=== PATIENT | female | born 1975 | race Caucasian/White ===

== ENCOUNTER 2020-05-17 15:42 | Outpatient (CLI) | payer BC, SELFPAY ==
--- NOTE | ~2020-05-17 | MM_ITS ---
EXAMINATION: MM screening [facility] BI w nazario HISTORY: Screening mammogram TECHNIQUE: Craniocaudal and mediolateral oblique 3-D tomosynthesis images were obtained and synthetic 2-D images were generated. CAD analysis was submitted and interpreted. COMPARISON: 07/15/2012 BREAST PARENCHYMAL COMPOSITION: The breasts are heterogeneously dense, which may obscure small masses . FINDINGS: RIGHT BREAST: There is a possible mass of the posterior third of the inner right breast best apprecia orly 7.5 cm from the nipple on craniocaudal tomosynthesis image 32/62. LEFT BREAST: There is no evidence of suspicious mass, calcification, or architectural distortion to s uggest malignancy. There has been no significant interval change. IMPRESSION: 1. Possible right breast mass. 2. Additional mammographic views and possible breast ultrasound are recommended. BI-RADS Category 0: Incomplete: Needs additional imaging evaluation. Reviewed, dictated and finalized at location A. IMPRESSION: 1. Possible right breast mass. 2. Additional mammographic views and possible breast ultrasound are recommended . BI-RADS Category 0: Incomplete: Needs additional imaging evaluation.
== END 2020-05-17 15:43 | disposition home or self-care (01) ==
LOC: ANHIMG 15:47
PROVIDERS: PCP Physician Assistant; Visit Provider Physician Assistant
DX: Z12.31 Encounter for screening mammogram for malignant neoplasm of breast (principal); R92.8 Other abnormal and inconclusive findings on diagnostic imaging of breast
CPT/HCPCS: 77063; 77067

== ENCOUNTER 2020-06-15 13:11 | Outpatient (CLI) | payer BC, SELFPAY ==
--- NOTE | ~2020-06-15 | MMUS_ITS ---
EXAMINATION: MM diagnostic mammo unilat RT, US breast RT complete HISTORY: Possible right breast mass reported in posterior third of inner right breast 7.5 cm from nip ple on screening craniocaudal view of 05/13/2020 screening mammogram TECHNIQUE: Additional 3-D tomosynthesis images of the right breast were performed and synthetic 2-D i mages were generated. CAD analysis was submitted and interpreted. High resolution complete right nick st ultrasound was performed. COMPARISON: 05/17/2020 bilateral digital screening mammogram FINDINGS: MAMMOGRAPHIC FINDINGS: No suspicious mass or architectural distortion is evident mammographically.. ULTRASOUND: 12:00 near nipple: 10 x 5 x 10 mm simple cyst 11:00 1 cm from nipple: 5.3 x 4.6 x 9.5 mm cyst No suspicious mass or shadowing is detected. IMPRESSION: 1. Benign cysts; no mammographic evidence of malignancy 2. Routine mammographic screening is recommended. BI-RADS Category 2: Benign finding(s). Reviewed, dictated and finalized at location A. IMPRESSION: 1. Benign cysts; no mammographic evidence of malignancy 2. Routine mammographic screening is recommended. BI-RADS Category 2: Benign finding(s).
== END 2020-06-15 13:12 | disposition home or self-care (01) ==
LOC: ANHIMG 13:13
PROVIDERS: PCP Physician Assistant; Visit Provider Physician Assistant
DX: R92.8 Other abnormal and inconclusive findings on diagnostic imaging of breast (principal)
CPT/HCPCS: 76641; 77065

== ENCOUNTER 2021-01-10 07:58 | Outpatient (CLI) | payer BC, SELFPAY ==
--- NOTE | ~2021-01-10 | US_ITS ---
EXAMINATION: US right upper quadrant DATE: 01/10/2021 08:36 INDICATION: Diarrhea. TECHNIQUE: Multiple grayscale and Doppler ultrasound images of the abdomen were obtained. COMPARISON: None FINDINGS: The visualized portions of the head and body of the pancreas are normal. There is diffuse h epatic steatosis. No liver surface nodularity. There is normal flow in main portal vein. The gallblad malathi is normal in size. No gallstones or gallbladder wall thickening. There is no sonographic Bang s ign. The common duct is normal and measures 4 mm. IMPRESSION: 1. Diffuse hepatic steatosis. Reviewed, dictated and finalized at location B.
== END 2021-01-10 07:59 | disposition home or self-care (01) ==
PROVIDERS: PCP Physician Assistant; Visit Provider Physician Assistant
DX: R19.7 Diarrhea, unspecified (principal); K76.0 Fatty (change of) liver, not elsewhere classified
CPT/HCPCS: 76705

== ENCOUNTER 2021-01-24 06:35 | Outpatient (CLI) | payer BC, SELFPAY ==
--- NOTE | ~2021-01-24 | CT_ITS ---
EXAMINATION: CT abdomen pelvis w con EXAM DATE: 01/24/2021 07:00 INDICATION: Diarrhea unspecified. No history of abdominal pain. TECHNIQUE: Spiral CT of the abdomen and pelvis was performed without contrast. Axial, coronal and sag ittal images were reviewed. The dose-length product (DLP) for this examination was 975.65 mGy-cm. T he exposure was tailored according to patient size (auto mA exposure control), and iterative reconstr uction (ASIR) was used as additional dose reduction technique. There is no prior study for compariso n. FINDINGS: Portal and splenic veins are patent. Kidneys enhance symmetrically. There is no hydroneph rosis. The uterus is anteverted and morphologically normal. The bladder is unremarkable. The leona er, spleen, adrenal glands and pancreas are unremarkable. Gallbladder is unremarkable. No biliary o bstruction. There is no retroperitoneal or pelvic lymphadenopathy. The appendix has fluid inside of it. Proximal half measures about 7 mm in diameter and this tapers to the tip at about 4 mm in diameter, without appendicolith or inflammation. The stomach and small bow el are unremarkable. There is expected amount of colonic stool. No free intraperitoneal gas. The heart is normal in size. There are no pericardial or pleural effusions. The lung bases are unremar kable. There are no osteoblastic or osteolytic lesions identified. IMPRESSION: 1. Appendix appearance likely normal for this patient, no appendicolith, inflammation or acute sympt omatology provided. 2. Unremarkable CT abdomen pelvis. Reviewed, dictated and finalized at location B. IMPRESSION: 1. Appendix appearance likely normal for this patient, no appendicolith, infla mmation or acute symptomatology provided. 2. Unremarkable CT abdomen pelvis.
== END 2021-01-24 06:36 | disposition home or self-care (01) ==
PROVIDERS: PCP Physician Assistant; Visit Provider Physician Assistant
DX: R19.7 Diarrhea, unspecified (principal)
CPT/HCPCS: 74177; Q9967

== ENCOUNTER 2021-06-07 16:49 | Outpatient (CLI) | payer BC, SELFPAY ==
--- NOTE | ~2021-06-07 | MM_ITS ---
EXAMINATION: MM screening [facility] BI w nazario HISTORY: Screening TECHNIQUE: Craniocaudal and mediolateral oblique 3-D tomosynthesis images were obtained and synthetic 2-D images were generated. CAD analysis was submitted and interpreted. COMPARISON: Comparison to multiple prior studies sequentially, with oldest reviewed study dated 05/17. BREAST PARENCHYMAL COMPOSITION: Breast composed of scattered areas of fibroglandular density. FINDINGS: There is no evidence of suspicious mass, calcification, or architectural distortion to sugg est malignancy in either breast. There has been no suspicious interval change. IMPRESSION: 1. No mammographic evidence of malignancy. 2. Recommend routine screening mammography in one year. BI-RADS Category 1: Negative Reviewed, dictated and finalized at location A.
== END 2021-06-07 16:50 | disposition home or self-care (01) ==
PROVIDERS: PCP Physician Assistant; Visit Provider Physician Assistant
DX: Z12.31 Encounter for screening mammogram for malignant neoplasm of breast (principal)
CPT/HCPCS: 77063; 77067

== ENCOUNTER 2023-02-08 14:57 | Outpatient (CLI) | payer BC, SELFPAY ==
--- NOTE | ~2023-02-08 | MM_ITS ---
EXAMINATION: MM screening [facility] BI w nazario HISTORY: Screening mammogram TECHNIQUE: Craniocaudal and mediolateral oblique 3-D tomosynthesis images were obtained and synthetic 2-D images were generated. CAD analysis was submitted and interpreted. COMPARISON: 06/07/2021, 06/05/2020, 05/17/2020 BREAST PARENCHYMAL COMPOSITION: There are scattered areas of fibroglandular density. FINDINGS: No suspicious mass, calcification, or architectural distortion are identified in either jose ast to suggest malignancy. There has been no suspicious interval change. IMPRESSION: 1. No mammographic evidence of malignancy. 2. Recommend routine screening mammography in one year. BI-RADS Category 1: Negative Reviewed, dictated and finalized at location A.
== END 2023-02-08 14:58 | disposition home or self-care (01) ==
PROVIDERS: PCP Physician Assistant; Visit Provider Physician Assistant
DX: Z12.31 Encounter for screening mammogram for malignant neoplasm of breast (principal)
CPT/HCPCS: 77063; 77067

== ENCOUNTER 2024-11-18 17:08 | Emergency (ER) | payer BC, SELFPAY ==
--- NOTE | ~2024-11-18 | XR_ITS ---
EXAM: XR finger 2nd LT min 2V, XR finger 3rd LT min 2V DATE: 11/18/2024 19:05 HISTORY: LAC . COMPARISON: None available. FINDINGS: Normal mineralization. No fracture or dislocation. No lytic or blastic lesion. Mild scatte red degenerative changes. No erosion or periosteal change. Punctate and linear radiopaque foreign bod ies over the anterior soft tissues at the tip of the third digit. Linear radiopaque foreign body over the anterior soft tissues of the distal second digit. Soft tissue swelling and irregularity anterior ly in the distal second and third digits likely representing the reported laceration. IMPRESSION: No acute osseous finding in the left second or third fingers. Radiopaque soft tissue debr is. Reviewed, dictated and finalized at location K. ORDER CLERK IMPRESSION: No acute osseous finding in the left second or third fingers. Radio paque soft tissue debris.
[2024-11-18 17:15] VITALS: BP 133/76; PULSE 68; RESP 16; TEMP 36.4; O2SAT 100
--- OUTSIDE RECORDS SUMMARY | 2024-11-18 18:56 | XMS_ITS | Data Portability ---
Author Organization [facility] ABENADenisha Address [address] [place] [address] Assessment No assessment recorded. Plan of Treatment Reminders Order Date Submit Date Provider Last Modified By Organization Details Last Modified Time Details Appointments None recorded . Lab TSH + free T4, serum 024 12/03/19 24 [facility], [address], [place], [address], 4 09:29:31 lipid panel, serum 024 12/03/19 24 [facility], [address], [place], [address], 4 09:29:30 CBC w/ auto diff 024 12/03/19 24 [email or web address] 0 [facility], [address], [place], [address], 4 16:51:02 CMP, serum or plasma 024 12/03/19 24 [email or web address] 0 [facility], [address], [place], [address], 4 16:51:03 HbA1c (hemoglo bin A1c), blood 024 12/03/19 24 [email or web address] 0 [facility], [address], [place], [address], 4 16:51:02 Referral None recorded . Procedures None recorded . Surgeries None recorded . Imaging None recorded . Medication Orders None recorded . Patient TargetsNo targets recorded. Patient InstructionsNo instructions recorded. Reason for Referral None Reported. Results Created Date Observation Date Name Description Value Unit Range Abnormal Flag Note LastModifiedBy Organization Detail LastModifiedTime Result Notes None recorded. Problems No Known Problems Procedures Surgical History Date Name Laterality Status Provider Name and Address Organization Details Recorded Time ovarian ablation completed Thao Robles MA [facility] 12/03/2023 17:23:37 Imaging Results None recorded. Procedure Notes None recorded. Medical Equipment None Reported. Allergies No known drug allergies Medications Name Sig Start Date Stop Date Status Note LastModified by Organization Details LastModified Time butalbital 50 mg-acetamino phen 300 mg-caffeine 40 mg-codeine 30 mg cap TAKE 1 CAPSULE BY MOUTH EVERY 4 HOURS NEEDED active Not Available Not Available No t Available Vitals Date Recorded Body weight Body mass index (BMI) Body height Oxygen saturation Oxygen saturation in Arterial blood by Pulse oximetry Heart rate Systolic blood pressure Diastolic blood pressure Provider Name and Address Organization Details Last Updated DateTime 4 29612.2 5 g 33.8 kg/m2 165.1 cm 98 % 98 % 56 /min 128 mm[Hg] 82 mm[Hg] Thao Robles MA [facility] 4 17:22:25 Social History Question Answer Notes LastModified by Organizat ion Details LastModified Time Tobacco Smoking Status Never Smoker [facility] 12/03/2023 17:23:28 What Was The Date Of Your Most Recent Tobacco Screening? 12/03/2023 Information not available 12/03/2023 Has Tobacco Cessation Counseling Been Provided? No Information not available 12/03/2023 Do You Or Have You Ever Used Any Other Forms Of Tobacco Or Nicotine? No Information not available 12/03/2023 Sex: Unknown Functional Status None recorded. Mental Status None recorded. Family History Relationship Description Onset Age of this Age Resolved Age Notes LastModified by Organization Details LastModified Time Father Alcoholism [email or web address] Not availab le 12/03/2023 17:23:03 Father Malignant tumor of lung [email or web address] Not available 2023 17:23:10 Mother Hypertensive disorder [email or web address] Not available 2023 17:23:17 Mother Diabetes mellitus [email or web address] Not available 2023 17:23:22 Medical History No medical history recorded. Gynecological HistoryNo gynecological history recorded. Obstetrics History GPAL:G 0 P 0 0 0 0 Past Encounters Encounter ID Performer Location Encounter Start Date Encounter Closed Date Diagnosis/Indication Diagnosis SNOMED-CT Code Diagnosis ICD10 Code Diagnosis Note [id number] DEYVI Kelley [facility] [address] [place] [address] 12/03/2023 16:56:49 12/03/2023 17:57:31 Adult health examination 541689444 Z00.00 annual wellness completed. fasting labs ordered for annual evaluation . Cholesterol screening 27 7962620 Z13.220 Diabetes m ellitus screening 806950894 Z13.1 Thyroid di sorder screening 839572106 Z13.29 Health Concerns Section Related Observation LastModified by Organization Detai ls LastModified Time None Recorded Concern Status LastModified by Organization Details LastModified Time None Recorded Advance Directives Directive None Recorded Payers Encounter Date Sequence Insurance Name Policy Number Policy Rice Covered Member ID Rice Member ID Guarantor Name 12/03/2023 1 [employer]: ([place]) [id number] Jennifer Hollingsworth [id number] Jennifer Hollingsworth Notes Date Note Type Note Provider Name and Address Organization Details Recorded Time 12/03/2023 text/html Generic HPI TemplateReported bypatient.Notes:pt is here to re-establish with PCP at new office. Here for wellness evaluation. DEYVI Kelley Attn: Accounting,[address], [place], [address], [facility] 12/23/2023 13:01:24 OBGyn Episode No OBEpisode recorded.
--- OUTSIDE RECORDS SUMMARY | 2024-11-18 18:56 | XMS_ITS | Continuity of Care Document ---
Author Organization [facility] Address [address] [address] [place] [address] Phone Care Team Providers Care Scale Expert Name Role Phone Jaylan Bhandari II, MD Unavailable Unavailab le Allergies, Adverse Reactions, Alerts Substance Reaction Status Criticality No Known allergies Medications Medication Instructions Dosage Effective Dates (start - stop) Status Comments AMBIEN (unknown strength) Not Available - Active SYNTHROID (unknown strength) Not Available - Active PLAQUENIL (unknown strength) Not Available - Active Procedures Procedure Date X-ray/Knee 1 Or 2 Views Office/outpatient visit, new, detailed O Advance Directives Directive Yes / No Effective Date File Name No Information Encounters Encounter Description Practice Location Reason(s) For Visit Diagnoses Date Provider Providers Copied on Encounter Office/outpat ient visit, new, detailed [facility], [address] [address] [place] [address], [address], [place] tel:[phone] [facility] right knee pain (chief complaint) Pain in limbBilateral anterior knee painChondromal acia, patella [address] Tian[address], [place], [place], [id number] , [place]. tel: [phone] Referring Provider: Socorro Amaya, [address] [place] [address] [address], [place], [address]. tel:[phone] Family History Family Member Type Diagnosis Age At Onset Father Problem (finding) stroke Father Problem (finding) Systemic lupus erythema tosus Payers Payer name Insurance type Covered constitution party ID Kat tejada(s) [employer] [facility] CI [id number] Social History Type Description Quantity Date Captured Comments Alcohol Use Details No Caffeine Use Details Unknown Tobacco Use Status No Information Smoking Status Unknown if ever smoked 14 Sex Female Vital Signs Date / Time: Height Weight BMI Pulse Rate Blood Pressure Temperature Respiratory Rate Body Surface Area Head Circumference Head Circ. Percentile Wt./Randal. Percentile BMI percentile Pulse Ox Inhaled Ox 11:22 AM 64.00 in 90.718 kg (200.00 lbs) 34.3 3 kg/m eter (2) 117/75 mm[Hg] Chief Complaint And Reason For Visit From encounter dated '07/11/2013 11:00'. right knee pain (chief complaint). Description: Severity level is mild-moderate. Location: right knee. Context: there is an injury. Trauma 3 Days ago on 07/08/2013. Hand Dominance: right.Ms. Hollingsworth is a 38-year-old female who presents today with complaints of bilateral anterior knee pain. She states the right is worse than the left. It's been going on for years. She did have a small injury recently which did flare-up the pain in her right knee. Most pain is anterior. Has occasional swelling at the end of the day. It hurts with stairs. She's had no physical therapy or injections. States she has increasing right knee pain along the anterior aspect of her knee. Reason For Referral Reason For Referral No Information Plan Of Treatment Date Type Action Status Referral Ordered: X-ray/Knee 1 Or 2 Views RT knee ordered History Of Present Illness Encounter Date Complaint History Of Prese nt Illness right knee pain Severity level i s mild-moderate. Location: right knee. Context: there is an injury. Trauma 3 Days ago on 07/08/2013. Hand Dominance: right.Ms. Hollingsworth is a 38-year-old female who presents today with complaints of bilateral anterior knee pain. She states the right is worse than the left. It's been going on for years. She did have a small injury recently which did flare-up the pain in her right knee. Most pain is anterior. Has occasional swelling at the end of the day. It hurts with stairs. She's had no physical therapy or injections. States she has increasing right knee pain along the anterior aspect of her knee. Functional Status Date Functional Assessmen t No Information Instructions Date Instruction Additional Infor mation No Information Assessments Type Assessment Date No Information Patient Care Teams Name Effective Dates (start - stop) Status Members No Information
--- OUTSIDE RECORDS SUMMARY | 2024-11-18 19:16 | XMS_ITS | Data Portability ---
Author Organization [facility], Main Office Address [address] [place] [address] Assessment No assessment recorded. Plan of Treatment Reminders Order Date Submit Date Provider Last Modified By Organization Details Last Modified Time Details Appointments None recorded. Lab CBC w/ auto diff 2022 023 [facility], [address], [address], [place], [address], 3 07:27:20 CMP, serum or plasma 2022 023 [facility], [address], [address], [place], [address], 3 07:27:18 noninvasive colorectal cancer DNA + occult blood screening, QL, stool 2022 023 [facility] (Cologuard Orders Only), [address], [address], [place], [address], 3 03:33:16 lipid panel, serum 2022 023 [facility], [address], [address], [place], [address], 3 07:27:17 HbA1c (hemoglobin A1c), blood 2022 023 [facility], [address], [address], [place], [address], 3 07:27:19 TSH + free T4, serum 2022 023 [facility], [address], [place], [address], 07:27:17 Referral None recorded. Procedures None recorded. Surgeries None recorded. Imaging MAMMO, screening, digital, bilateral 2022 023 [facility] (Mammography) , [address], [place], [address], 17:05:11 Medication Orders None recorded. Patient TargetsNo targets recorded. Patient InstructionsNo instructions recorded. Reason for Referral None Reported. Results Created Date Observation Date Name Description Value Unit Range Abnormal Flag Note LastModifiedBy Organization Detail LastModifiedTime 12/09/1912/09/2022 TSH+F REE T4 TSH 3.05 mIU/L normal Refer ence Range > or = 20 Years 0.40- 4.50 Pregn kelechi Range s First trime ster 0.26- 2.66 Secon d trime ster 0.55- 2.73 Third trime ster 0.43- 2.91 Not Available [facility] [address], [address], 12/09/2022 07:27:16 12/09/1912/09/2022 TSH+F REE T4 T4, free 1.0 NG/dL 0.8-1. 8 normal Not Available [facility] [address] [place], [address], 12/09/2022 07:27:16 12/09/1912/09/2022 LIPID PANEL WITH RATIO S cholesterol, total 167 mg/dL <200 normal Not Available [facility] [address] [place], [address], 12/09/2022 07:27:17 12/09/1912/09/2022 LIPID PANEL WITH RATIO S HDL cholesterol 75 mg/dL > or = 50 normal Not Available [facility] [id number] [place] [address], [place], [address], 12/09/2022 07:27:17 12/09/19 23 12/09/2022 LIPID PANEL WITH RATIO S triglyceride s 46 mg/dL <150 normal Not Available [address], [address], 12/09/2022 07:27:17 12/09/19 23 12/09/2022 LIPID PANEL WITH RATIO S LDL-choleste rol 79 mg/dL _(woody c) normal Refer ence range : <100 Dipesh able range <100 mg/dL for prima ry preve ntion ; <70 mg/dL for patie nts with CHD or diabe tic patie nts with > or = 2 CHD risk facto rs. LDL-C is now calcu lated using the Grace n-Hop kins calcu latio n, which is a valid ated novel metho d provi ding rasheeda r accur acy than the Fried pravin equat ion in the estim ation of LDL-C . Grace estrada SS et al. RON. 2013; 310(1 9): 2061- 2068 (http ://ed ucati on.Qu estDi SoCAT. com/f aq/FA Q164) Not Available [address], [address], 12/09/2022 07:27:17 12/09/19 23 12/09/2022 LIPID PANEL WITH RATIO S chol/HDLC ratio 2.2 (calc ) <5.0 normal Not Available [address], [address], 12/09/2022 07:27:17 12/09/19 23 12/09/2022 LIPID PANEL WITH RATIO S LDL/HDL ratio 1.1 (calc ) Below avera ge Risk: <2.34 [place] Risk: 2.35- 4.12 Moder ate Risk: 4.13- 5.56 High Risk: >5.57 Not Available [address], [address], 12/09/2022 07:27:17 12/09/19 23 12/09/2022 LIPID PANEL WITH RATIO S non HDL cholesterol 92 mg/dL _(woody c) <130 normal For patie nts with diabe clary plus 1 major ASCVD risk facto r, treat ing to a non-H DL-C goal of <100 mg/dL (LDL- C of <70 mg/dL ) is tammyi teagan kimball optio n. Not Available [address] [place], [address], 12/09/2022 07:27:17 12/09/19 23 12/09/2022 COMPR EHENS PHYLLIS METAB OLIC PANEL glucose 95 mg/dL 65-99 normal Fasti ng refer ence inter angela Not Available [address], [address], 12/09/2022 07:27:18 12/09/19 23 12/09/2022 COMPR EHENS PHYLLIS METAB OLIC PANEL urea nitrogen (BUN) 16 mg/dL 7-25 normal Not Available [address], [address], 12/09/2022 07:27:18 12/09/19 23 12/09/2022 COMPR EHENS PHYLLIS METAB OLIC PANEL creatinine 0.77 mg/dL 0.50-0 .99 normal Not Available [address], [address], 12/09/2022 07:27:18 12/09/19 23 12/09/2022 COMPR EHENS PHYLLIS METAB OLIC PANEL eGFR 96 mL/mi n/1.7 3m2 > or = 60 normal The eGFR is based on the CKD-E PI 2020 jackson lópez. To calcu late the new eGFR from a previ ous Creat inine or Cysta tin C resul t, go to https ://paolo corley.alesha castillo/keisha pierce/ kdoqi /gfr% 5Fcal culat or Not Available [address] [place], [address], 12/09/2022 07:27:18 12/09/19 23 12/09/2022 COMPR EHENS PHYLLIS METAB OLIC PANEL BUN/creatini ne ratio NOT APPLIC ABLE (calc ) 6-22 Not Available [address], [address], 12/09/2022 07:27:18 12/09/19 23 12/09/2022 COMPR EHENS PHYLLIS METAB OLIC PANEL sodium 138 mmol/ L 135-14 6 normal Not Available [address], [address], 12/09/2022 07:27:18 12/09/19 23 12/09/2022 COMPR EHENS PHYLLIS METAB OLIC PANEL potassium 4.2 mmol/ L 3.5-5. 3 normal Not Available [address], [address], 12/09/2022 07:27:18 12/09/19 23 12/09/2022 COMPR EHENS PHYLLIS METAB OLIC PANEL chloride 103 mmol/ L 98-110 normal Not Available [address], [address], 12/09/2022 07:27:18 12/09/19 23 12/09/2022 COMPR EHENS PHYLLIS METAB OLIC PANEL carbon dioxide 28 mmol/ L 20-32 normal Not Available [address], [address], 12/09/2022 07:27:18 12/09/19 23 12/09/2022 COMPR EHENS PHYLLIS METAB OLIC PANEL calcium 9.2 mg/dL 8.6-10 .2 normal Not Available [address], [address], 12/09/2022 07:27:18 12/09/19 23 12/09/2022 COMPR EHENS PHYLLIS METAB OLIC PANEL protein, total 6.9 g/dL 6.1-8. 1 normal Not Available [address], [address], 12/09/2022 07:27:18 12/09/19 23 12/09/2022 COMPR EHENS PHYLLIS METAB OLIC PANEL albumin 4.4 g/dL 3.6-5. 1 normal Not Available [address], [address], 12/09/2022 07:27:18 12/09/19 23 12/09/2022 COMPR EHENS PHYLLIS METAB OLIC PANEL globulin 2.5 g/dL_ (calc ) 1.9-3. 7 normal Not Available [address], [address], 12/09/2022 07:27:18 12/09/19 23 12/09/2022 COMPR EHENS PHYLLIS METAB OLIC PANEL albumin/glob ulin ratio 1.8 (calc ) 1.0-2. 5 normal Not Available [address], [address], 12/09/2022 07:27:18 12/09/19 23 12/09/2022 COMPR EHENS HPYLLIS METAB OLIC PANEL bilirubin, total 0.5 mg/dL 0.2-1. 2 normal Not Available [address], [address], 12/09/2022 07:27:18 12/09/19 23 12/09/2022 COMPR EHENS PHYLLIS METAB OLIC PANEL alkaline phosphatase 64 U/L 31-125 normal Not Available [address], [address], 12/09/2022 07:27:18 12/09/19 23 12/09/2022 COMPR EHENS PHYLLIS METAB OLIC PANEL AST 15 U/L 10-35 normal Not Available [address] [place], [address], 12/09/2022 07:27:18 12/09/19 23 12/09/2022 COMPR EHENS PHYLLIS METAB OLIC PANEL ALT 14 U/L 6-29 normal Not Available [facility] [address] [place], [address], 12/09/2022 07:27:18 12/09/19 23 12/09/2022 HEMOG LOBIN A1C hemoglobin A1C 5.4 %_of_ total _HGB <5.7 normal For the purpo se of scree vera for the prese nce of diabe clary: <5.7% Consi stent with the absen ce of diabe clary 5.7-6 .4% Consi stent with incre ased risk for diabe clary (pred iabet es) > or =6.5% Consi stent with diabe clary This assay resul t is consi stent with a decre ased risk of diabe clary. Curre ntly, no conse nsus exist s regar randy use of hemog lobin A1c for diagn osis of diabe clary in child jenna. Accor ding to Ameri can Diabe clary Assoc iatio n (ADA) guide lines , hemog lobin A1c <7.0% repre sents optim al contr ol in non-p regna nt diabe tic patie nts. Diffe rent metri cs may apply to speci fic patie nt popul ation s. Stand ards of Medic al Care in Diabe clary(A DA). Not Available [facility] [address] [place], [address], 12/09/2022 07:27:19 12/09/19 23 12/09/2022 CBC (INCL UDES DIFF/ PLT) white blood cell count 6.9 thous and/u L 3.8-10 .8 normal Not Available [facility] [address] [place], [address], 12/09/2022 07:27:20 12/09/19 23 12/09/2022 CBC (INCL UDES DIFF/ PLT) red blood cell count 4.51 yvonne on/uL 3.80-5 .10 normal Not Available [address], [address], 12/09/2022 07:27:20 12/09/19 23 12/09/2022 CBC (INCL UDES DIFF/ PLT) hemoglobin 13.5 g/dL 11.7-1 5.5 normal Not Available [address], [address], 12/09/2022 07:27:20 12/09/19 23 12/09/2022 CBC (INCL UDES DIFF/ PLT) hematocrit 40.4 % 35.0-4 5.0 normal Not Available [address], [address], 12/09/2022 07:27:20 12/09/19 23 12/09/2022 CBC (INCL UDES DIFF/ PLT) MCV 89.6 fL 80.0-1 00.0 normal Not Available [address], [address], 12/09/2022 07:27:20 12/09/19 23 12/09/2022 CBC (INCL UDES DIFF/ PLT) MCH 29.9 pg 27.0-3 3.0 normal Not Available [address], [address], 12/09/2022 07:27:20 12/09/19 23 12/09/2022 CBC (INCL UDES DIFF/ PLT) MCHC 33.4 g/dL 32.0-3 6.0 normal Not Available [address], [address], 12/09/2022 07:27:20 12/09/19 23 12/09/2022 CBC (INCL UDES DIFF/ PLT) RDW 11.9 % 11.0-1 5.0 normal Not Available [facility] [address], [address], 12/09/2022 07:27:20 12/09/19 23 12/09/2022 CBC (INCL UDES DIFF/ PLT) platelet count 353 thous and/u L 140-40 0 normal Not Available [address], [address], 12/09/2022 07:27:20 12/09/19 23 12/09/2022 CBC (INCL UDES DIFF/ PLT) MPV 9.9 fL 7.5-12 .5 normal Not Available [address], [address], 12/09/2022 07:27:20 12/09/19 23 12/09/2022 CBC (INCL UDES DIFF/ PLT) absolute neutrophils 4050 cells /uL 1500-7 800 normal Not Available [address], [address], 12/09/2022 07:27:20 12/09/19 23 12/09/2022 CBC (INCL UDES DIFF/ PLT) absolute lymphocytes 2263 cells /uL 850-39 00 normal Not Available [address], [address], 12/09/2022 07:27:20 12/09/19 23 12/09/2022 CBC (INCL UDES DIFF/ PLT) absolute monocytes 442 cells /uL 200-95 0 normal Not Available [address], [address], 12/09/2022 07:27:20 12/09/19 23 12/09/2022 CBC (INCL UDES DIFF/ PLT) absolute eosinophils 83 cells /uL 15-500 normal Not Available [address], [address], 12/09/2022 07:27:20 12/09/19 23 12/09/2022 CBC (INCL UDES DIFF/ PLT) absolute basophils 62 cells /uL 0-200 normal Not Available [address], [address], 12/09/2022 07:27:20 12/09/19 23 12/09/2022 CBC (INCL UDES DIFF/ PLT) neutrophils 58.7 % normal Not Available [address], [address], 12/09/2022 07:27:20 12/09/19 23 12/09/2022 CBC (INCL UDES DIFF/ PLT) lymphocytes 32.8 % normal Not Available [address], [address], 12/09/2022 07:27:20 12/09/19 23 12/09/2022 CBC (INCL UDES DIFF/ PLT) monocytes 6.4 % normal Not Available [address], [address], 12/09/2022 07:27:20 12/09/19 23 12/09/2022 CBC (INCL UDES DIFF/ PLT) eosinophils 1.2 % normal Not Available [address], [address], 12/09/2022 07:27:20 12/09/19 23 12/09/2022 CBC (INCL UDES DIFF/ PLT) basophils 0.9 % normal Not Available [address], [address], 12/09/2022 07:27:20 12/29/19 23 12/28/2022 COLOG UARD cologuard result reportable NEGATI VE negati ve NEGAT PHYLLIS TEST RESUL T. A negat phyllis Colog uard resul t indic ates a low likel ihood that a color ectal cance r (CRC) or advan eder adeno ma (gunjan omato us polyp s with more advan eder pre-m align ant featu res) is prese nt. The [facility] e that a perso n with a negat phyllis Colog uard test has a color ectal cance r is less than 1 in 1500 (nega tive predi ctive value >99.9 %) or has an advan eder adeno ma is less than 5.3% (nega tive predi ctive value 94.7% ). These data are based on a prosp ectiv e cross -sect ional study of 10,00 0 indiv idual s at [place] [facility] risk for color ectal cance r who were scree lauren with both Colog uard and colon oscop y. (Impe boy T. et al, N Engl J Med 2014; 370(1 4):12 86-12 97) The eliazar l value (refe rence range ) for this assay is negat phyllis. COLOG UARD RE-SC REENI NG RECOM MENDA TION: Perio dic color ectal cance r scree vera is an impor tant part of preve ntive healt hcare for asymp tomat ic indiv idual s at [place] risk for color ectal cance r. Follo wing a negat phyllis Colog uard resul t, the Ameri can Cance r Socie ty and U.S. Multi -Soci ety Task Force scree vera guide lines recom mend a Colog uard re-sc reeni ng inter angela of 3 years . Refer ences : Ameri can Cance r Socie ty Guide line for Color ectal Cance r Scree vera: https ://paolo w.can cer.o rg/ca ncer/ colon -rect al-ca ncer/ detec tion- diagn osis- stagi ng/ac s-rec ommen datio ns.ht ml.; Miles GRACIA, Omayra ahuja CR, Kit WAYNE, Color ectal Cance r Scree vera: Recom menda tions for Physi cians and Patie nts from the U.S. Multi -Soci ety Task Force on Color ectal Cance r Scree vera , Hosea Mayberry Gastr oente rolog y 2017; 112:1 016-1 030. TEST DESCR IPTIO N: Linganore site algor ithmi c ashley sis of stool DNA-b iomar kers with hemog lobin immun oassa y. Quant itati ve value s of indiv idual bioma rkers are not repor table and are not assoc iated with indiv idual bioma rker resul t refer ence range s. Colog uard is inten ded for color ectal cance r scree vera of adult s of eithe r sex, 45 years or older , who are at [facility] for color ectal cance r (CRC) . Colog uard has been appro pearl for use by the U.S. FDA. The perfo rmanc e of Colog uard was estab lishe d in a cross secti onal study of [facility] adult s aged 50-84 . Colog uard perfo rmanc e in patie nts ages 45 to 49 years was estim ated by sub-g roup ashley sis of near- age group s. Colon oscop ies perfo rmed for a posit phyllis resul t may find as the most clini sully signi ficdianna t eddi n: color ectal cance r [4.0% ], advan eder adeno ma (incl uding sessi le esmer orly polyp s great er than or equal to 1cm diame ter) [20%] or non- advan eder adeno ma [31%] ; or no color ectal neopl tatyana [45%] . These estim ates are deriv ed from a prosp ectiv e cross -sect ional scree [facility] study of 10,00 0 indiv idual s at [facility] risk for color ectal cance r who were scree lauren with both Colog uard and colon oscop y. (Mari Lopez al, N Engl J Med 2014; 370(1 4):12 86-12 97.) Colog uard may produ ce a false negat phyllis or false posit phyllis resul t (no color ectal cance r or preca ncero us polyp prese nt at colon oscop y follo w up). A negat phyllis Colog uard test resul t does not guara ntee the absen ce of CRC or advan eder adeno ma (pre- cance r). The curre nt Colog uard scree vera inter angela is every 3 years . (Kimberley Stanley r Socie ty and U.S. Multi -Soci ety Task Force ). Colog uard perfo rmanc e data in a 10,00 0 patie nt pivot al study using colon oscop y as the refer ence metho d can be acces sed at the follo wing locat ion: www.e xactl abs.c om/re sults . Addit ional descr iptio n of the Colog uard test proce ss, warni ngs and preca ution s can be found at www.c ologu marco.c om. Not Available [facility] (Cologuard Orders Only) [address], [place], [address], 01/05/2023 03:33:16 01/11/20 21 01/10/2021 US, deangelo cruz r No observ ation record ed. MIGRATION. [address] [place] [address], [address], 11/22/2022 00:57:30 01/25/20 21 01/24/2021 CT, abdom en + pelvi s, w/ contr ast No observ ation record ed. MIGRATION. [address] [place] [address] (Imaging) [address] [place] [address], [address], 11/22/2022 00:57:30 06/08/20 21 06/08/2021 MAMMO , scree vera, digit al, bilat eral No observ ation record ed. MIGRATION. [address] [place] [address] (Mammography) [address], [place], [address], 11/22/2022 00:57:30 04/17/20 23 02/08/2023 MAMMO , scree vera, digit al, bilat eral No observ ation record ed. [email or web address] [address], [address], 04/18/2023 14:44:05 Result Notes None recorded. Problems Name Problem SNOMED Code Status Onset Date Resolution Date Notes Provider Name and Address Organization Details Recorded Time Overweight 476771208 Active Not Available [facility] 3 00:50:48 Diarrhea 61299539 Active Not Available [facility] 3 00:50:48 Problem Notes None recorded. Procedures Surgical History Date Name Laterality Status Provider Name and Address Organization Details Recorded Time ligation of bilateral fallopian tubes completed Not Available [facility] 11/22/2022 00:45:34 Ablation completed Not Available [facility] 00:45:34 Imaging Results Imaging Date Name Status LastModified by Organiz ation Details LastModified Time 01/10/2021 US, gallbladder completed [id number], [address], 11/22/2022 00:57:30 01/24/2021 CT, abdomen + pelvis, w/ contrast completed [id number] [facility] (Imaging) [address] [place] [address], [place], [address], 11/22/2022 00:57:30 06/08/2021 MAMMO, screening, digital, bilateral completed [id number] [facility] (Mammography) [address], [place], [address], 11/22/2022 00:57:30 02/08/2023 MAMMO, screening, digital, bilateral completed [email or web address] [address], [address], 04/18/2023 14:44:05 Procedure Notes None recorded. Medical Equipment None Reported. Allergies No known drug allergies Medications Name Sig Start Date Stop Date Status Note LastModified by Organization Details LastModified Time Keflex 500 mg capsule Take 1 capsule every 6 hours by oral route. 11/02 completed Not Available Not Available Not Available amoxicillin 875 mg tablet Take 1 tablet every 12 hours by oral route. active Not Available Not Available No t Available meclizine 25 mg tablet prn 11/17 completed Not Available Not Available Not Available Lactaid Fast Act 9,000 unit chewable tablet TAKE 1 TABLET DAILY NEEDED 12/07 completed Not Available Not Available Not Available Golytely 236 gram-22.74 gram-6.74 gram-5.86 gram oral solution USE DIRECTED 04/04 completed Not Available Not Available Not Available Vitals Date Recorded Body mass index (BMI) Body height Oxygen saturation Oxygen saturation in Arterial blood by Pulse oximetry Heart rate Respiratory rate Body temperature Body weight Systolic blood pressure Diastolic blood pressure Provider Name and Address Organization Details Last Updated DateTime 1 35.2 kg/m2 162.56 cm 99 % 99 % 68 /min 16 /min 98.4 [degF] 16906.4 4 g 112 mm[Hg] 68 mm[Hg] Not Available [facility] 3 00:48:40 Date Recorded Body mass index (BMI) Body height Oxygen saturation Oxygen saturation in Arterial blood by Pulse oximetry Pain severity - 0-10 verbal numeric rating [Score] - Reported Heart rate Body temperature Body weight Provider Name and Address Organization Details Last Updated DateTime 1 35.7 kg/m2 162.56 cm 98 % 98 % 0 75 /min 96.9 [degF] 40267.2 1 g Not Available [facility] 3 00:48:42 Date Recorded Body height Body temperature Body mass index (BMI) Body weight Respiratory rate Oxygen saturation Oxygen saturation in Arterial blood by Pulse oximetry Heart rate Systolic blood pressure Diastolic blood pressure Provider Name and Address Organization Details Last Updated DateTime 3 162.56 cm 98.3 [degF] 34.7 kg/m2 51963.6 6 g 16 /min 97 % 97 % 68 /min 122 mm[Hg] 80 mm[Hg] REI Lee [facility] 3 14:39:21 Social History Question Answer Notes LastModified by Organizat ion Details LastModified Time Tobacco Smoking Status Never Smoker CINDY Márquez, [facility] 12/07/2022 14:22:37 Do You Have An Advance Directive? No [id number] Information not available 11/22/2022 What Is Your Level Of Alcohol Consumption? None [id number] Information not available 11/22/2022 What Is Your Level Of Caffeine Consumption? Moderate [id number] Information not available 11/22/2022 How Much Tobacco Do You Chew? None [id number] Information not available 11/22/2022 In The 14 Days Before Symptom Onset, Have You Had Close Contact With A Laboratory-confir med COVID-19 While That Case Was Ill? No Information not available 12/07/2022 In The 14 Days Before Symptom Onset, Have You Had Close Contact With A Person Who Is Under Investigation For COVID-19 While That Person Was Ill? No Information not available 12/07/2022 Are You Currently Employed? Yes Information not available 12/07/2022 What Type Of Diet Are You Following? REGULAR [id number] Information not available 11/22/2022 Which Illicit Or Recreational Drugs Have You Used? None Information not available 12/07/2022 Do You Or Have You Ever Used E-cigarettes Or Vape? Never Used Electronic Cigarettes Information not available 12/07/2022 What Is Your Occupation? [employer] Information not available 12/07/2022 Have There Been Any Changes To Your Family Or Social Situation? No Information no t available 12/07/2022 Are There Any Guns Present In Your Home? No Information not available 12/07/2022 Do You Use Insect Repellent Routinely? No Information not available 12/07/2022 Do You Have A Medical Power Of Weed Inspector? No Information not available 12/07/2022 What Was The Date Of Your Most Recent Tobacco Screening? 11/22/2020 Information not available 12/07/2022 What Is Your Relationship Status? Information not available 12/07/2022 Do You Use Your Seat Belt Or Car Seat Routinely? Yes Information not available 12/07/2022 Do You Have Smoke And Carbon Monoxide Detectors In Your Home? Yes Information not available 12/07/2022 Do You Or Have You Ever Used Smokeless Tobacco? Never Used Smokeless Tobacco [id number] Information not available 11/22/2022 How Much Tobacco Do You Smoke? No [id number] Information not available 11/22/2022 Do You Use Any Illicit Or Recreational Drugs? No Information not available 12/07/2022 Do You Use Sunscreen Routinely? Yes Information not available 12/07/2022 Have You Recently Traveled Abroad? No Information not available 12/07/2022 Do You Have Any Dietary Restrictions? No Information not available 12/07/2022 Do You Or Have You Ever Used Any Other Forms Of Tobacco Or Nicotine? No Information not available 12/07/2022 Sex: Unknown Functional Status Question Answer Note LastModified by Organizat ion Details LastModified Time What is your exercise level? Occasional [id number] Information not available 11/22/2022 Mental Status None recorded. Family History Relationship Description Onset Age of this Age Resolved Age Notes LastModified by Organization Details LastModified Time Mother Diabetes mellitus [id number] Not available 11/22/2022 00:45:38 Mother Hypertensive disorder [id number] Not available 11/22/2022 00:45:38 Brother Diabetes mellitus [id number] Not available 11/22/2022 00:45:38 Father Malignant tumor of lung Not available 2022 14:22:34 Medical History Condition Response NERVE DISEASE N BLINDNESS N RHEUMATIC FEVER N KIDNEY STONES N BLADDER PROBLEMS N OTHER # 1 N POLIO N LUNG DISEASE/DISORDER N RADIATION / CHEMOTHERAPY N COPD N Other # 2 N BLOOD DISEASES N SURGERY N EAR OR HEARING PROBLEMS N MUMPS N DEPRESSION (INCLUDING POST ) Y BOWEL PROBLEMS Y STROKE/TIA N ULCERS N BENIGN PROSTATIC HYPERPLASIA N MEASLES N MYOCARDIAL INFARCTION N OBESITY N GERD/NAUSEA N ANEURYSM N URINARY/BLADDER/KIDNEY PROBLEMS N INPATIENT PSYCH CARE N CORONARY ARTERY DISEASE (CAD) N ADDICTION CONCERNS N Impotence N ENDOMETRIOSIS N USE OF BLOOD THINNERS N SKIN PROBLEMS N GASTROINTESTINAL DISORDER N PERIPHERAL VASCULAR DISEASE N MUSCLE,JOINT OR BONE PROBLEMS N GASTROINTESTINAL BLEEDING N BLOOD CLOTS N ASTHMA N CATARACTS N ERECTILE DYSFUNCTION N VARICOSITIES N GI PROBLEMS N Low Testosterone N INFERTILITY N AIDS/HIV N LIVER DISEASE N MALE HYPOGONADISM N HYPERTENSION N Deficiency N ANXIETY DISORDER Y BLOOD TRANSFUSION N ANEMIA/BLOOD DISORDER N CHRONIC EAR INFECTIONS N BRONCHITIS N TUBERCULOSIS N GLAUCOMA N DIVERTICULITIS N SLEEP APNEA N CHICKENPOX N INFECTIOUS DISEASE N PROSTATE N HEART ARRHYTHMIA N INSOMNIA N HIGH CHOLESTEROL / HYPERLIPIDEMIA N EYE PROBLEMS N HYPERTHYROIDISM N NEUROLOGICAL PROBLEMS N EDEMA N CHRONIC PAIN SYNDROME N HYPOTHYROIDISM N CAROTID BLOCKAGE N CONSTIPATION N BACK / NECK PROBLEMS N HAVE YOU BEEN HOSPITALIZED OR SEEN IN [facility] IN THE PAST YEAR ? N ATHEROSCLEROSIS N BREAST PROBLEMS N DIALYSIS N ECZEMA N OSTEOPOROSIS N ARTHRITIS N NO SIGNIFICANT PAST MEDICAL HISTORY N APPENDICITIS N DIABETES, TYPE N BAD TEETH N ENT N HEARTBURN / REFLUX N AUTISM SPECTRUM DISORDER (ASD) N HEPATITIS / LIVER DISEASE N PULMONARY DISEASE N GOUT N SLEEP DISORDER N ALZHEIMER'S DISEASE N Brain Problems N DEMENTIA N HERPES N SEIZURES/EPILEPSY N HEADACHES/MIGRAINES N VASCULAR DISEASE N PACEMAKER N Blood Disorder N DIZZINESS Y HEART DISEASE/HEART PROBLEMS N KIDNEY DISEASE N MULTIPLE SCLEROSIS N CANCER: SPECIFY N CARDIAC ARRHYTHMIA N ANESTHESIA COMPLICATIONS N ATRIAL FIBRILLATION N Gall Stones N PULMONARY EMBOLISM N AUTOIMMUNE DISEASE N Gynecological History Statement/Question Response Menses Monthly N Date of Last Pap 09/24/2013 Date of Last Mammogram 03/24/2020 Current Control Method Ablation Sexually Active? Y Obstetrics History GPAL:G 4 P 0 0 0 4 Type Value Living 4 Total 4 Immunizations Vaccine Type Date Status Note Provider Nam e and Address Organization Details Recorded Time tetanus toxoid, unspecified formulation 8 completed Not Available [facility] 11/22/2022 00:56:58 Tdap 8 completed Not Available [facility] 11/22/2022 00:56:59 Past Encounters Encounter ID Performer Location Encounter Start Date Encounter Closed Date Diagnosis/Indication Diagnosis SNOMED-CT Code Diagnosis ICD10 Code Diagnosis Note [id number] [facility] Internal [facility] [place] [address] [address], [address] [place] [address] 11/22/2020 00:00:00 11/29/2020 10:03:22 [id number] _ATHENA_M IGRATION_ DEFAULT_1 _1 , 02/16/2021 00:00:00 02/16/2021 11:10:58 [id number] DEYVI Kelley [facility] [place] [address] [address], [address] [place] [address] 12/07/2022 14:18:45 12/07/2022 15:09:39 Adult health examination 701334066 Z00.00 well exam completed. fasting labs ordered Cholesterol screening 27 1810002 Z13.220 Diabetes m ellitus screening 184459249 Z13.1 Screening for malignant neoplasm of colon 828268985 Z12.11 pt opts for cologuard screening method Screening for disorder 680972218 Z13.9 Body mass index 30+ - obesity 745911924 Z68.34 Screening mammography 24 858639 Z12.31 mammogram due Health Concerns Section Related Observation LastModified by Organization Detai ls LastModified Time None Recorded Concern Status LastModified by Organization Details LastModified Time None Recorded Advance Directives Directive N: Payers Encounter Date Sequence Insurance Name Policy Number Policy Rice Covered Member ID Rice Member ID Guarantor Name 12/07/2022 1 [facility]: (PPO) [id number] Dharmesh Hollingsworth [id number] Jennifer Hollingsworth Notes Date Note Type Note Provider Name and Address Organization Details Recorded Time 11/22/2020 text/html Generic HPI TemplateReported bypatient.Notes:Pt presents today for yearly wellness exam. No concerns or complaints reported. Not Available [facility] 11/29/2020 10:03:22 12/07/2022 text/html Generic HPI TemplateReported bypatient.Notes:Pt is here for her wellness. No chronic prob/meds. No complaints today. Wellness DEYVI Kelley [address] [place] [address], [place], [address], [facility] 12/16/2022 00:21:39 OBGyn Episode No OBEpisode recorded.
--- OUTSIDE RECORDS SUMMARY | 2024-11-18 19:16 | XMS_ITS | Continuity of Care Document ---
Author Organization [facility] Address [address] [facility] [address] [place] [address] Phone Care Team Providers Care Qa Specialist Name Role Phone Jaylan Bhandari II, MD [...] detailed [facility], [address] [facility] [address] [place] [address], [address], [place] tel:[phone] [facility] right knee pain (chief complaint) Pain in limbBilateral anterior knee painChondromal acia, patella 3 Thony Tian. [address], [place], [place], [id number] , [place]. tel: [phone] Referring Provider: Socorro Amaya, [address] [place] [address] [address], [place], [address]. tel:[phone] Family History Family Member Type Diagnosis Age At Onset Father Problem (finding) stroke Father Problem (finding) Systemic lupus erythema tosus Payers Payer name Insurance type Covered alliance party ID Kat tejada(s) [facility] Plans [facility] CI [id number] 1 Social History Type Description Quantity Date [...]
[2024-11-18] MEDS: HYDROcodone/acetaminophen (*CRX) 5-325 MG TABLET 1 TAB PO (19:35)
[2024-11-18] MEDS: KETOROLAC (*BKC) 60 MG/2 ML VIAL IM (19:36)
[2024-11-18] MEDS: LIDOCAINE 1% LOCAL INJ 10 ML VIAL INFILTRATE (19:39)
[2024-11-18] MEDS: TETANUS,DIPHTHERIA,AC PERTUSSIS ADULT (0.5 ML) BOOSTRIX IM (19:49)
--- NOTE | 2024-11-18 20:32 | ED_ITS ---
HPI - Wound/Laceration General Chief Complaint: Wound/Laceration Stated Complaint: i cut 2 fingers at work on the becker machine Time Seen by Provider: 11/18/24 18:46 History of Present Illness HPI narrative: Patient is a 41-year-old who presents to the ER with complaints of lef t 2nd and 3rd digit lacerations. 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 Pt endorses a fair amount of pain in her 2nd and 3rd digits. She denies numbness and tingling to those digits. Patient denies any medical history related to this ER visit. She denies any recent fevers, signs/symptoms of infection, or decreased range of mo tion on the affected extremity. Related Data Home Medications ?Medication ?Instructions ?Recorded ?Confirmed ?Last Taken ?Type No Home Medications 12/05/21 12/18/23 Unknown History Allergies Allergy/AdvReac Type Severity Reaction Status Date / Time No Known Allergies Allergy Verified 11/18/24 17:09 Review of Systems Review of Systems: All systems reviewed & are unremarkable except as noted in HPI and below PMFSH Past Medical History Medical History Screening mammogram, encounter for Anxiety and depression Surgical History Surgical History History of gynecological procedure ablation History of gynecological procedure tubal ligation Family History Family History Other Diabetes mellitus Family history of alcoholism Hypertension Social History Social History Smoking status: Never smoker Second hand tobacco smoke exposure: No Alcohol intake: never Substance use: never Substance use type: does not use Do You Feel Safe in your Home?: Yes Lack of Transportation: No Lack of Food: Never True Current Housing: I Have Housing Concerned About Future Housing: No Difficulty Paying Gas/Electric Bills: No Difficulty Paying for Meds: No Currently Unemployed: No Education: High School Diploma/GED Difficulty w/ Childcare or Family Care: No Living arrangements: other Additional living arrangements comments: spouse Occupation/Education: occupation Additional occupation/education comments: gaming cashier Gender identity (if verbalized by the patient): Female Sexual Orientation (if Verbalized by the Patient): Straight or Heterosexual Exam Narrative: GENERAL: Well appearing, well-nourished, non-toxic, in no acute distress. HEAD: Normocephalic, atraumatic. NECK: Supple. No adenopathy, no masses. RESPIRATORY: Airway patent, respirations nonlabored. Clear to auscultation bilaterally, no rales, rhonchi, wheezing. CARDIOVASCULAR: Regular rate and rhythm without murmurs, rubs, or gallops. Peripheral pulses 2+ and equal bilaterally. ABDOMINAL: Soft, nontender, nondistended, no hepatosplenomegaly. Normoactive BS. MUSCULOSKELETAL: Moves all extremities. Strength/ROM intact without gross deformities. SKIN: Warm, dry, normal color. No rashes. 3 linear lacerations to 2nd and 3rd digits- one 1 cm laceration to 3rd digit medial to the PIP joint, one 2 cm laceration running vertically along the lateral anterior tip of the 3rd digit, and one 1 1/2 cm laceration to the 2nd digit running horizontal between the DIP and PIP joint. Bleeding controlled. Full range of motion in all joints. NEURO: A&O X3. Speech clear. Cranial nerves II-XII grossly intact. Steady gait. No ataxic movements. PSYCHIATRIC: Appropriate mood and affect. Normal interaction. Course Vital Signs Vital signs: Vital Signs Temperature 36.4 C L 11/18/24 17:15 Pulse Rate 68 11/18/24 17:15 Respiratory Rate 16 11/18/24 17:15 Blood Pressure 133/76 11/18/24 17:15 Pulse Oximetry 100 11/18/24 17:15 Temperature 36.4 C L 11/18/24 17:15 Pulse Rate 68 11/18/24 17:15 Respiratory Rate 16 11/18/24 17:15 Blood Pressure 133/76 11/18/24 17:15 Pulse Oximetry 100 11/18/24 17:15 MDM - Wound/Laceration MDM Narrative Medical decision making narrative: Patient is a 41-year-old who presents to the ER with complaints of left 2nd and 3rd digit lacerations. 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 Pt endorses a fair amount of pain in her 2nd and 3rd digits. She denies numbness and tingling to those digits. Patient denies any medical history related to this ER visit. She denies any recent fevers, signs/symptoms of infection, or decreased range of motion on the affected extremity. Labs Ordered: None necessary Imaging Ordered: L 2nd and 3rd digit x-rays Medications Ordered: [place] PO, Toradol IM, Tdap IM, Lidocaine 1% infiltrate Results: Pt's x-rays indicate Normal mineralization. No fracture or dislocation. No lytic or blastic lesion. Mild scattered degenerative changes. No erosion or periosteal change. Punctate and linear radiopaque foreign bodies over the anterior soft tissues at the tip of the third digit. Linear radiopaque foreign body over the anterior soft tissues of the distal second digit. Soft tissue swelling and irregularity anteriorly in the distal second and third digits likely representing the reported laceration. Diagnosis: 2nd and 3rd digit laceration Patient Education/Shared MDM: Results of x-rays shared with patient. She endorses improvement following medication administration. Pt's wounds were irrigated extensively with normal saline. The bases of both digits were cleaned with iodine and 10mL of Lidocaine 1% injected for numbing purposes. Lacerations were repaired with Ethilon 4.0 sutures. Eleven sutures were placed. Small 1/2 cm cellulose square placed on pt's 3rd digit to help one of the laceration heal that was not approximated. Pt tolerated procedure well. 2nd and 3rd digits were wrapped and splinted with metal splints. Patient tolerated procedure well. She will be discharged home with no new prescriptions. Strict return precautions provided. Patient verbalized understanding is in agreement with plan. Vital signs stable at time of discharge. All questions answered. Differential Diagnosis Differential diagnosis: Likely laceration, abrasion and avulsion of skin Imaging Data Attestation: I personally reviewed and interpreted this imaging study as follows: Radiologist's impression: Impressions Finger X-Ray 11/18/24 19:16 IMPRESSION: No acute osseous finding in the left second or third fingers. Radiopaque soft tissue debris. Finger X-Ray 11/18/24 19:16 IMPRESSION: No acute osseous finding in the left second or third fingers. Radiopaque soft tissue debris. Discharge Plan Discharge Clinical Impression: Laceration, Avulsion of skin Patient Disposition: Home, Self-Care Condition: Stable Instructions: Antibiotic Form, Care For Your Stitches (ED), Laceration (ED) Additional Instructions: Please return to the ER with an worsening symptoms. Follow-up with primary care provider in the next 2-3 days to ensure appropriately healing. You may take Tylenol and Ibuprofen for pain control. Sutures should be removed in 10-14 days. Please keep lacerations covered. Patient Language: Scottish Prescriptions: No Action No Home Medications Follow-up/Referrals: Sylvia,MARQUISE Chowdhury [Primary Care Provider] - Stand Alone Forms: Work/School Release IP Time of Disposition: 20:52
[2024-11-18] MEDS: CELLULOSE OXIDIZED 2 x 3 INCH 1 PKT XX (21:18)
== END 2024-11-18 21:19 | disposition home or self-care (01) ==
PROVIDERS: Emergency Provider Registered Nurse; PCP Physician Assistant
DX: S61.211A Laceration without foreign body of left index finger without damage to nail, initial encounter (principal); S61.213A Laceration without foreign body of left middle finger without damage to nail, initial encounter; Z23 Encounter for immunization; W31.89XA Contact with other specified machinery, initial encounter
CPT/HCPCS: 12002; 73140; 90471; 90715; 96372; 99283; A9270; J1885; J2003

== ENCOUNTER 2025-01-09 07:52 | Outpatient (CLI) | payer BC, SELFPAY ==
--- NOTE | ~2025-01-09 | MM_ITS ---
EXAMINATION: MM screening maria e BI w nazario HISTORY: Screening TECHNIQUE: Craniocaudal and mediolateral oblique 3-D tomosynthesis images were obtained and synthetic 2-D images were generated. CAD analysis was submitted and interpreted. COMPARISON: Comparison to multiple prior studies sequentially, with oldest reviewed study dated 05/17. BREAST PARENCHYMAL COMPOSITION: Not dense: There are scattered areas of fibroglandular density. FINDINGS: The right breast is stable without evidence for malignancy. There is developing asymmetry i n the upper outer quadrant of the left breast, posterior third. IMPRESSION: 1. Developing left breast asymmetry. 2. Additional mammographic views and possible breast ultrasound are recommended. BI-RADS Category 0: Incomplete: Needs additional imaging evaluation. Reviewed, dictated and finalized at location B. IMPRESSION: 1. Developing left breast asymmetry. 2. Additional mammographic views and possible breast ultrasound are recommended . BI-RADS Category 0: Incomplete: Needs additional imaging evaluation.
--- OUTSIDE RECORDS SUMMARY | 2025-01-09 07:59 | XMS_ITS | Data Portability ---
Author Organization [facility] Sarita Address [address] [place] [address] Care Team Providers Care Restoration Technician Name Role Phone LORAINEDinhANTOINETTEIE Primary Care Provider CHRISTIANO Manning Bracelet Form Coverer Assessment No assessment recorded. Plan of Treatment Reminders Order Date Submit Date Provider Last Modified By Organization Details Last Modified Time Details Appointments None recorded. Lab TSH + free T4, serum 2023 024 [facility], [address], [place], [address], 09:29:31 lipid panel, serum 2023 024 [facility], [address], [place], [address], 4 09:29:30 CBC w/ auto diff 2023 024 [email or web address] 0 [facility], [address], [place], [address], 4 16:51:02 CMP, serum or plasma 2023 024 [email or web address] 0 [facility], [address], [place], [address], 4 16:51:03 HbA1c (hemoglobin A1c), blood 2023 024 [email or web address] 0 [facility], [address], [place], [address], 4 16:51:02 Referral None recorded. Procedures None recorded. Surgeries None recorded. Imaging None recorded. Medication Orders cephalexin 500 mg capsule 2024 025 [id number], [address], [place], [place], [id number], 17:28:04 Patient TargetsNo targets recorded. Patient Instructions Encounter Date Encounter Id Patient Instructions Last Modified By Organization Details Last Modified Time 12/01/2024 [id number] A healthy lifestyle: care instructions [place] [id number] Not available 12/02/2024 12:06:49 Reason for Referral None Reported. Results Created Date Observation Date Name Description Value Unit Range Abnormal Flag Note LastModifiedBy Organization Detail LastModifiedTime 11/19/1911/18/2024 XR, finge r(s) No observ ation record ed. [email or web address] [facility] [address] [place] [address] [address], [place], [address], 11/19/2024 14:20:43 Result Notes None recorded. Problems Name Problem SNOMED Code Status Onset Date Resolution Date Notes Provider Name and Address Organization Details Recorded Time Body mass index 25-29 - overweight 588424382 Active 025 Randall Duque MA null, [place] [facility] 11:35:38 Overweight 697855219 Active 025 DEYVI Kelley Attn: Accountin g,[address] [facility], [place], [address], [place] [facility] 20:40:21 Problem Notes None recorded. Procedures Surgical History Date Name Laterality Status Provider Name and Address Organization Details Recorded Time Suture/Staple removal completed DEYVI Kelley Attn: Accounting,[address] [facility], [place], [address], [place] [facility] 12/21/2024 20:39:20 ovarian ablation completed Thao Robles [place] [facility] 12/03/2023 17:23:37 Imaging Results Imaging Date Name Status LastModified by Organiz ation Details LastModified Time 11/18/2024 XR, finger(s) completed [email or web address] [facility] [address], [place], [address], 11/19/2024 14:20:43 Procedure Notes None recorded. Medical Equipment None Reported. Allergies No known drug allergies Medications Name Sig Start Date Stop Date Status Note LastModified by Organization Details LastModified Time ibuprofen 800 mg tablet Take 1 tablet by oral route for 6 days. active Not Available Not Available No t Available hydrocodone 5 mg-acetamino phen 325 mg tablet TO 1 TO 2 TABLETS BY MOUTH EVERY 4 TO 6 HOURS NEEDED FOR PAIN MAX DOSE 8 TABLETS DAILY 12/01 completed Not Available Not Available Not Available acetaminophe n 300 mg-codeine 30 mg tablet Take 1 tablet by oral route for 5 days. active Not Available Not Available No t Available amoxicillin 875 mg tablet TAKE 1 TABLET BY MOUTH EVERY 12 HOURS 12/01 completed Not Available Not Available Not Available cephalexin 500 mg capsule TAKE 1 CAPSULE BY MOUTH EVERY 6 HOURS 01/05 completed Not Available Not Available Not Available butalbital 50 mg-acetamino phen 300 mg-caffeine 40 mg-codeine 30 mg cap TAKE 1 CAPSULE BY MOUTH EVERY 4 HOURS NEEDED 12/01 completed Not Available Not Available Not Available Vitals Date Recorded Body weight Body mass index (BMI) Body height Oxygen saturation Oxygen saturation in Arterial blood by Pulse oximetry Heart rate Systolic blood pressure Diastolic blood pressure Provider Name and Address Organization Details Last Updated DateTime 4 95726.2 5 g 33.8 kg/m2 165.1 cm 98 % 98 % 56 /min 128 mm[Hg] 82 mm[Hg] Thao Robles MA [facility] 4 17:22:25 Date Recorded Body height Body mass index (BMI) Body weight Respiratory rate Oxygen saturation Oxygen saturation in Arterial blood by Pulse oximetry Heart rate Systolic blood pressure Diastolic blood pressure Provider Name and Address Organization Details Last Updated DateTime 5 165.1 cm 27.8 kg/m2 80782 g 18 /min 97 % 97 % 75 /min 126 mm[Hg] 80 mm[Hg] Randall Duque MA [facility] 11:40:30 Date Recorded Body height Body mass index (BMI) Body weight Respiratory rate Oxygen saturation Oxygen saturation in Arterial blood by Pulse oximetry Heart rate Systolic blood pressure Diastolic blood pressure Provider Name and Address Organization Details Last Updated DateTime 165.1 cm 27.1 kg/m2 62485.5 6 g 18 /min 99 % 99 % 72 /min 126 mm[Hg] 82 mm[Hg] Randall Duque MA [facility] 17:29:41 Date Recorded Systolic blood pressure Diastolic blood pressure Provider Name and Address Organization Details Last Updated DateTime 01/05/2025 130 mm[Hg] 70 mm[Hg] DEYVI Kelley Attn: Accounting[address] [place], [address], [facility] 01/05/2025 17:47:44 Social History Question Answer Notes LastModified by Organizat ion Details LastModified Time Tobacco Smoking Status Never Smoker Thao Robles MA null, [facility] 12/03/2023 17:23:28 Do You Have An Advance Directive? No Information not available 12/01/2024 What Is Your Level Of Alcohol Consumption? Occasional Information not available 12/01/2024 Are You Blind Or Do You Have Difficulty Seeing? Yes Glasses Information not available 12/01/2024 What Is Your Level Of Caffeine Consumption? Occasional Coffee 1 Day/ Tea Information not available 12/01/2024 In The 14 Days Before Symptom Onset, Have You Had Close Contact With A Laboratory-confir med COVID-19 While That Case Was Ill? No Information not available 12/01/2024 In The 14 Days Before Symptom Onset, Have You Had Close Contact With A Person Who Is Under Investigation For COVID-19 While That Person Was Ill? No Information not available 12/01/2024 Have You Been To An Area Known To Be High Risk For COVID-19? No Information not available 12/01/2024 Are You Currently Employed? Yes Information not available 12/01/2024 Are You Deaf Or Do You Have Serious Difficulty Hearing? No Information not available 12/01/2024 What Type Of Diet Are You Following? REGULAR Information not available 12/01/2024 Are There Any Guns Present In Your Home? No Information not available 12/01/2024 What Was The Date Of Your Most Recent Tobacco Screening? 01/05/2025 Information not available 01/05/2025 Do You Use Your Seat Belt Or Car Seat Routinely? Yes Information not available 12/01/2024 Do You Have Smoke And Carbon Monoxide Detectors In Your Home? Yes Information not available 12/01/2024 Do You Use Any Illicit Or Recreational Drugs? No Information not available 12/01/2024 Do You Use Sunscreen Routinely? No Information not available 01/05/2025 Has Tobacco Cessation Counseling Been Provided? No Information not available 12/03/2023 Do You Or Have You Ever Used Any Other Forms Of Tobacco Or Nicotine? No Information not available 12/03/2023 Sex: Female Functional Status Question Answer Note LastModified by Organizat ion Details LastModified Time Are you able to care for yourself? Yes Information not available 12/01/2024 What is your exercise level? Occasional walk Information not available 12/01/2024 Mental Status None recorded. Family History Relationship Description Onset Age of this Age Resolved Age Notes LastModified by Organization Details LastModified Time Father Alcoholism [email or web address] Not availab le 12/03/2023 17:23:03 Father Malignant tumor of lung [email or web address] Not available 2023 17:23:10 Mother Hypertensive disorder [email or web address] Not available 2023 17:23:17 Mother Diabetes mellitus [email or web address] Not available 2023 17:23:22 Medical History No medical history recorded. Gynecological History Statement/Question Response Menses Monthly N Current Control Method Ablation Obstetrics History GPAL:G 4 P 4 0 0 4 Type Value Multiple Births 0 Full Term 4 Induced 0 Spontaneous 0 Premature 0 Living 4 Total 4 Immunizations Vaccine Type Date Status Note Provider Alexx dixon and Address Organization Details Recorded Time Tdap 11/18/2024 completed Randall Duque MA null, [place] [facility] 12/01/2024 11:37:01 Past Encounters Encounter ID Performer Location Encounter Start Date Encounter Closed Date Diagnosis/Indication Diagnosis SNOMED-CT Code Diagnosis ICD10 Code Diagnosis Note [id number] DEYVI Kelley [facility] [address] [place] [address] 12/03/2023 16:56:49 12/03/2023 17:57:31 Adult health examination 957141282 Z00.00 annual wellness completed. fasting labs ordered for annual evaluation . Cholesterol screening 27 7119306 Z13.220 Diabetes m ellitus screening 453182923 Z13.1 Thyroid di sorder screening 948917715 Z13.29 [id number] DEYVI Kelley [facility] [address] [place] [address] 12/01/2024 11:13:46 12/01/2024 12:21:08 Body mass index 25-29 - overweight 523249012 Z68.27 Overweight 025630822 E66 .3 Laceration of finger of left hand 5952694610 0404711 S61.211D Sutures removed on the left index and middle finger laceration sites. Suture removal was very difficult as there was significan t amount of gauze closure material that had to be peeled off as well as scabbed area to be removed after the area was soaked with saline. Slowly sutures were all removed and there was some purulent drainage that was expressed from the index finger site. Antibiotic will be started Cellulitis of finger of left hand 1299321054 6834432 L03.012 Start Keflex 500 mg every 6 hours for 10 days [id number] DEYVI Kelley [facility] [address] [place] [address] 01/05/2025 17:17:12 01/05/2025 17:50:07 Adult health examination 293632986 Z00.00 annual wellness completed. fasting labs ordered for annual evaluation . Cholesterol screening 27 2885514 Z13.220 Diabetes m ellitus screening 549735016 Z13.1 Thyroid di sorder screening 121459591 Z13.29 Health Concerns Section Related Observation LastModified by Organization Detai ls LastModified Time None Recorded Concern Status LastModified by Organization Details LastModified Time None Recorded Advance Directives Directive N: Payers Encounter Date Sequence Insurance Name Policy Number Policy Rice Covered Member ID Rice Member ID Guarantor Name 12/03/2023 1 [place] [id number] Jennifer Hollingsworth [id number] Jennifer Childress Darrick 12/01/2024 1 [place] [id number] Jennifer Hollingsworth [id number] Jennifer Hollingsworth Notes Date Note Type Note Provider Name and Address Organization Details Recorded Time 12/03/2023 text/html Generic HPI TemplateReported bypatient.Notes:pt is here to re-establish with PCP at new office. Here for wellness evaluation. DEYVI Kelley Attn: Accounting[address] [place], [address], [facility] 12/23/2023 13:01:24 12/01/2024 text/html Patient is here for follow-up of laceration of left hand finger and have all of the sutures removed. She is not currently on any antibiotic but is in quite a bit of pain since the accident. 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 She is not currently having any fever but again she has kept the area bandaged and does have pain. DEYVI Kelley Attn: Accounting,[address] [place], [address], [facility] 12/21/2024 20:40:45 OBGyn Episode No OBEpisode recorded.
--- OUTSIDE RECORDS SUMMARY | 2025-01-09 07:59 | XMS_ITS | Data Portability ---
Author Organization [facility], Main Office Address [address] [place] [address] Assessment No assessment recorded. Plan of Treatment Reminders Order Date Submit Date Provider Last Modified By Organization Details Last Modified Time Details Appointments None recorded. Lab CBC w/ auto diff 2022 023 [employer] [facility], [address], [address], [place], [address], 3 07:27:20 CMP, serum or plasma 2022 023 [employer] [facility], [address], [address], [place], [address], 3 07:27:18 noninvasive colorectal cancer DNA + occult blood screening, QL, stool 2022 023 [facility] (Cologuard Orders Only), [address], [address], [place], [address], 3 03:33:16 lipid panel, serum 2022 023 [employer] [facility], [address], [address], [place], [address], 3 07:27:17 HbA1c (hemoglobin A1c), blood 2022 023 [employer] [facility], [address], [address], [place], [address], 3 07:27:19 TSH + free T4, serum 2022 023 [facility], [address], [place], [address], 07:27:17 Referral None recorded. Procedures None recorded. Surgeries None recorded. Imaging MAMMO, screening, digital, bilateral [address] [facility] (Mammography) , [address], [place], [address], 17:05:11 Medication Orders None recorded. Patient TargetsNo [...] Third trime ster 0.43- 2.91 Not Available [employer] [address], [address], 12/09/2022 07:27:16 12/09/1912/09/2022 TSH+F REE T4 T4, free 1.0 NG/dL 0.8-1. 8 normal Not Available [facility] [address] [place], [address], 12/09/2022 07:27:16 12/09/1912/09/2022 LIPID PANEL WITH RATIO S cholesterol, total 167 mg/dL <200 normal Not Available [facility] [address] [place], [address], 12/09/2022 07:27:17 12/09/1912/09/2022 LIPID PANEL WITH RATIO S HDL cholesterol 75 mg/dL > or = 50 normal Not Available [facility] [address] [place], [place] [address], [address], 12/09/2022 07:27:17 12/09/19 23 12/09/2022 LIPID PANEL WITH RATIO S triglyceride s 46 mg/dL <150 normal Not Available [address], [address], 12/09/2022 07:27:17 12/09/19 23 12/09/2022 LIPID PANEL [...] 2061- 2068 (http ://ed ucati on.Qu estDi Clavister. com/f aq/FA Q164) Not Available [address], [address], 12/09/2022 07:27:17 12/09/19 23 12/09/2022 LIPID PANEL WITH RATIO S chol/HDLC ratio 2.2 (calc ) <5.0 normal Not Available [address], [address], 12/09/2022 07:27:17 12/09/19 23 12/09/2022 LIPID PANEL WITH RATIO S LDL/HDL ratio 1.1 (calc ) Below avera ge Risk: <2.34 [place] ge Risk: 2.35- 4.12 Moder ate Risk: 4.13- 5.56 High Risk: >5.57 Not Available [address], [address], 12/09/2022 07:27:17 12/09/19 23 12/09/2022 LIPID PANEL WITH RATIO S non HDL cholesterol 92 mg/dL _(woody c) <130 normal For patie nts with diabe clary plus 1 major ASCVD risk facto r, treat ing to a non-H DL-C goal of <100 mg/dL (LDL- C of <70 mg/dL ) is tammyi teagan kimball optio n. Not Available [address] [place], [address], 12/09/2022 07:27:17 12/09/19 23 12/09/2022 COMPR EHENS PHYLLIS METAB OLIC PANEL glucose 95 mg/dL 65-99 normal Fasti ng refer ence inter angela Not Available [address], [address], 12/09/2022 07:27:18 12/09/19 23 12/09/2022 COMPR EHENS PHYLLIS METAB OLIC PANEL urea nitrogen (BUN) 16 mg/dL 7-25 normal Not Available [address], [address], 12/09/2022 07:27:18 12/09/19 23 12/09/2022 COMPR EHENS PHYLLIS METAB OLIC PANEL creatinine 0.77 mg/dL 0.50-0 .99 normal Not Available [address], [address], 12/09/2022 07:27:18 12/09/19 23 12/09/2022 COMPR EHENS [...] kdoqi /gfr% 5Fcal culat or Not Available [address] [place], [address], 12/09/2022 07:27:18 12/09/19 23 12/09/2022 COMPR EHENS PHYLLIS METAB OLIC PANEL BUN/creatini ne ratio NOT APPLIC ABLE (calc ) 6-22 Not Available [address], [address], 12/09/2022 07:27:18 12/09/19 23 12/09/2022 COMPR EHENS PHYLLIS METAB OLIC PANEL sodium 138 mmol/ L 135-14 6 normal Not Available [address], [address], 12/09/2022 07:27:18 12/09/19 23 12/09/2022 COMPR EHENS PHYLLIS METAB OLIC PANEL potassium 4.2 mmol/ L 3.5-5. 3 normal Not Available [address], [address], 12/09/2022 07:27:18 12/09/19 23 12/09/2022 COMPR EHENS PHYLLIS METAB OLIC PANEL chloride 103 mmol/ L 98-110 normal Not Available [address], [address], 12/09/2022 07:27:18 12/09/19 23 12/09/2022 COMPR EHENS PHYLLIS METAB OLIC PANEL carbon dioxide 28 mmol/ L 20-32 normal Not Available [address], [address], 12/09/2022 07:27:18 12/09/19 23 12/09/2022 COMPR EHENS PHYLLIS METAB OLIC PANEL calcium 9.2 mg/dL 8.6-10 .2 normal Not Available [address], [address], 12/09/2022 07:27:18 12/09/19 23 12/09/2022 COMPR EHENS PHYLLIS METAB OLIC PANEL protein, total 6.9 g/dL 6.1-8. 1 normal Not Available [address], [address], 12/09/2022 07:27:18 12/09/19 23 12/09/2022 COMPR EHENS PHYLLIS METAB OLIC PANEL albumin 4.4 g/dL 3.6-5. 1 normal Not Available [address], [address], 12/09/2022 07:27:18 12/09/19 23 12/09/2022 COMPR EHENS PHYLLIS METAB OLIC PANEL globulin 2.5 g/dL_ (calc ) 1.9-3. 7 normal Not Available [address], [address], 12/09/2022 07:27:18 12/09/19 23 12/09/2022 COMPR EHENS PHYLLIS METAB OLIC PANEL albumin/glob ulin ratio 1.8 (calc ) 1.0-2. 5 normal Not Available [address], [address], 12/09/2022 07:27:18 12/09/19 23 12/09/2022 COMPR EHENS PHYLLIS METAB OLIC PANEL bilirubin, total 0.5 mg/dL 0.2-1. 2 normal Not Available [address], [address], 12/09/2022 07:27:18 12/09/19 23 12/09/2022 COMPR EHENS PHYLLIS METAB OLIC PANEL alkaline phosphatase 64 U/L 31-125 normal Not Available [address], [address], 12/09/2022 07:27:18 12/09/19 23 12/09/2022 COMPR EHENS PHYLLIS METAB OLIC PANEL AST 15 U/L 10-35 normal Not Available [address] [place], [address], 12/09/2022 07:27:18 12/09/19 23 12/09/2022 COMPR EHENS PHYLLIS METAB OLIC PANEL ALT 14 U/L 6-29 normal Not Available [facility] [address] [place], [address], 12/09/2022 07:27:18 12/09/19 23 12/09/2022 HEMOG LOBIN [...] Diabe clary(A DA). Not Available [facility] [address] [place], [address], 12/09/2022 07:27:19 12/09/19 23 12/09/2022 CBC (INCL UDES DIFF/ PLT) white blood cell count 6.9 thous and/u L 3.8-10 .8 normal Not Available [facility] [address] [place], [address], 12/09/2022 07:27:20 12/09/19 23 12/09/2022 CBC (INCL UDES DIFF/ PLT) red blood cell count 4.51 yvonne on/uL 3.80-5 .10 normal Not Available [address], [address], 12/09/2022 07:27:20 12/09/19 23 12/09/2022 CBC (INCL UDES DIFF/ PLT) hemoglobin 13.5 g/dL 11.7-1 5.5 normal Not Available [address], [address], 12/09/2022 07:27:20 12/09/19 23 12/09/2022 CBC (INCL UDES DIFF/ PLT) hematocrit 40.4 % 35.0-4 5.0 normal Not Available [address], [address], 12/09/2022 07:27:20 12/09/19 23 12/09/2022 CBC (INCL UDES DIFF/ PLT) MCV 89.6 fL 80.0-1 00.0 normal Not Available [address], [address], 12/09/2022 07:27:20 12/09/19 23 12/09/2022 CBC (INCL UDES DIFF/ PLT) MCH 29.9 pg 27.0-3 3.0 normal Not Available [address], [address], 12/09/2022 07:27:20 12/09/19 23 12/09/2022 CBC (INCL UDES DIFF/ PLT) MCHC 33.4 g/dL 32.0-3 6.0 normal Not Available [address], [address], 12/09/2022 07:27:20 12/09/19 23 12/09/2022 CBC (INCL UDES DIFF/ PLT) RDW 11.9 % 11.0-1 5.0 normal Not Available [facility] [address], [address], 12/09/2022 07:27:20 12/09/19 23 12/09/2022 CBC (INCL UDES DIFF/ PLT) platelet count 353 thous and/u L 140-40 0 normal Not Available [address], [address], 12/09/2022 07:27:20 12/09/19 23 12/09/2022 CBC (INCL UDES DIFF/ PLT) MPV 9.9 fL 7.5-12 .5 normal Not Available [address], [address], 12/09/2022 07:27:20 12/09/19 23 12/09/2022 CBC (INCL UDES DIFF/ PLT) absolute neutrophils 4050 cells /uL 1500-7 800 normal Not Available [address], [address], 12/09/2022 07:27:20 12/09/19 23 12/09/2022 CBC (INCL UDES DIFF/ PLT) absolute lymphocytes 2263 cells /uL 850-39 00 normal Not Available [address], [address], 12/09/2022 07:27:20 12/09/19 23 12/09/2022 CBC (INCL UDES DIFF/ PLT) absolute monocytes 442 cells /uL 200-95 0 normal Not Available [address], [address], 12/09/2022 07:27:20 12/09/19 23 12/09/2022 CBC (INCL UDES DIFF/ PLT) absolute eosinophils 83 cells /uL 15-500 normal Not Available [address], [address], 12/09/2022 07:27:20 12/09/19 23 12/09/2022 CBC (INCL UDES DIFF/ PLT) absolute basophils 62 cells /uL 0-200 normal Not Available [address], [address], 12/09/2022 07:27:20 12/09/19 23 12/09/2022 CBC (INCL UDES DIFF/ PLT) neutrophils 58.7 % normal Not Available [address], [address], 12/09/2022 07:27:20 12/09/19 23 12/09/2022 CBC (INCL UDES DIFF/ PLT) lymphocytes 32.8 % normal Not Available [address], [address], 12/09/2022 07:27:20 12/09/19 23 12/09/2022 CBC (INCL UDES DIFF/ PLT) monocytes 6.4 % normal Not Available [address], [address], 12/09/2022 07:27:20 12/09/19 23 12/09/2022 CBC (INCL UDES DIFF/ PLT) eosinophils 1.2 % normal Not Available [address], [address], 12/09/2022 07:27:20 12/09/19 23 12/09/2022 CBC (INCL UDES DIFF/ PLT) basophils 0.9 % normal Not Available [address], [address], 12/09/2022 07:27:20 12/29/19 23 12/28/2022 COLOG UARD cologuard result reportable NEGATI VE negati ve NEGAT PHYLLIS TEST RESUL T. A negat phyllis Colog uard resul t indic ates a low likel ihood that a color ectal cance r (CRC) or advan eder adeno ma (gunjan omato us polyp s with more advan eder pre-m align ant featu res) is prese nt. [facility] that a perso n with a [...] of 10,00 0 indiv idual s at [facility] risk for color ectal cance r [...] asymp tomat ic indiv idual s at [place] risk for color ectal cance r. [...] 112:1 016-1 030. TEST DESCR IPTIO N: [facility] site algor ithmi c ashley sis of [...] years or older , who are at [facility] for color ectal cance r (CRC) . Colog uard has been appro pearl for use by the [place] FDA. The perfo rmanc e of Colog uard was estab lishe d in a cross secti onal study of [facility] adult s aged 50-84 . Colog uard [...] prosp ectiv e cross -sect ional scree [facility] study of 10,00 0 indiv idual s at [facility] risk for color ectal cance r who [...] at www.c ologu marco.c om. Not Available [facility] (Cologuard Orders Only) [address], [place], [address], 01/05/2023 03:33:16 01/11/20 21 01/10/2021 US, deangelo cruz r No observ ation record ed. MIGRATION. [address] [place] [address], [address], 11/22/2022 00:57:30 01/25/20 21 01/24/2021 CT, abdom en + pelvi s, w/ contr ast No observ ation record ed. MIGRATION. [address] [place] [address] (Imaging) [address] [place] [address], [address], 11/22/2022 00:57:30 06/08/20 21 06/08/2021 MAMMO , scree vera, digit al, bilat eral No observ ation record ed. MIGRATION. [address] [place] [address] (Mammography) [address], [place], [address], 11/22/2022 00:57:30 04/17/20 23 02/08/2023 MAMMO , scree vera, digit al, bilat eral No observ ation record ed. [email or web address] [address], [address], 04/18/2023 14:44:05 Result Notes None recorded. Problems Name Problem SNOMED Code Status Onset Date Resolution Date Notes Provider Name and Address Organization Details Recorded Time Overweight 589116526 Active Not Available [facility] 3 00:50:48 Diarrhea 01263077 Active Not Available [facility] 3 00:50:48 Problem Notes None recorded. Procedures Surgical History Date Name Laterality Status Provider Name and Address Organization Details Recorded Time ligation of bilateral fallopian tubes completed Not Available [facility] 11/22/2022 00:45:34 Ablation completed Not Available [facility] 00:45:34 Imaging Results Imaging Date Name Status LastModified by Organiz ation Details LastModified Time 01/10/2021 US, gallbladder completed [id number], [address], 11/22/2022 00:57:30 01/24/2021 CT, abdomen + pelvis, w/ contrast completed [id number] 9259 [facility] (Imaging) [address] [place] [address], [place], [address], 11/22/2022 00:57:30 06/08/2021 MAMMO, screening, digital, bilateral completed [id number] [facility] (Mammography) [address], [place], [address], 11/22/2022 00:57:30 02/08/2023 MAMMO, screening, digital, bilateral completed [address], [address], 04/18/2023 14:44:05 Procedure Notes None recorded. Medical [...] % 68 /min 16 /min 98.4 [degF] 13688.4 4 g 112 mm[Hg] 68 mm[Hg] Not Available [facility] 3 00:48:40 Date Recorded Body mass index (BMI) Body height Oxygen saturation Oxygen saturation in Arterial blood by Pulse oximetry Pain severity - 0-10 verbal numeric rating [Score] - Reported Heart rate Body temperature Body weight Provider Name and Address Organization Details Last Updated DateTime 1 35.7 kg/m2 162.56 cm 98 % 98 % 0 75 /min 96.9 [degF] 84353.2 1 g Not Available [facility] 3 00:48:42 Date Recorded Body height Body temperature Body mass index (BMI) Body weight Respiratory rate Oxygen saturation Oxygen saturation in Arterial blood by Pulse oximetry Heart rate Systolic blood pressure Diastolic blood pressure Provider Name and Address Organization Details Last Updated DateTime 3 162.56 cm 98.3 [degF] 34.7 kg/m2 73868.6 6 g 16 /min 97 % 97 % 68 /min 122 mm[Hg] 80 mm[Hg] REI Lee [facility] 3 14:39:21 Social History Question Answer Notes LastModified by Organizat ion Details LastModified Time Tobacco Smoking Status Never Smoker CINDY Márquez, [facility] 12/07/2022 14:22:37 Do You Have An Advance Directive? No [id number] Information not available 11/22/2022 What Is Your Level Of Alcohol Consumption? None [id number] Information not available 11/22/2022 What Is Your Level Of Caffeine Consumption? Moderate [id number] Information not available 11/22/2022 How Much Tobacco Do You Chew? None [id number] Information not available 11/22/2022 In The 14 [...] Type Of Diet Are You Following? REGULAR [id number] Information not available 11/22/2022 Which Illicit Or Recreational Drugs Have You Used? None Information not available 12/07/2022 Do You Or Have You Ever Used E-cigarettes Or Vape? Never Used Electronic Cigarettes Information not available 12/07/2022 What Is Your Occupation? [employer] Information not available 12/07/2022 Have There Been Any Changes To Your Family Or Social Situation? No Information no t available 12/07/2022 Are There Any Guns Present In Your Home? No Information not available 12/07/2022 Do You Use Insect Repellent Routinely? No Information not available 12/07/2022 Do You Have A Medical Power Of Wallpaper Hanger? No Information not available 12/07/2022 What Was [...] Used Smokeless Tobacco? Never Used Smokeless Tobacco [id number] Information not available 11/22/2022 How Much Tobacco Do You Smoke? No [id number].[id number] Information not available 11/22/2022 Do You Use [...] Time What is your exercise level? Occasional [id number] Information not available 11/22/2022 Mental Status None recorded. Family History Relationship Description Onset Age of this Age Resolved Age Notes LastModified by Organization Details LastModified Time Mother Diabetes mellitus [id number] Not available 11/22/2022 00:45:38 Mother Hypertensive disorder [id number] Not available 11/22/2022 00:45:38 Brother Diabetes mellitus [id number] [id number] Not available 11/22/2022 00:45:38 Father Malignant tumor of lung Not available 2022 14:22:34 Medical History Condition Response NERVE DISEASE N BLINDNESS N RHEUMATIC FEVER N KIDNEY STONES N BLADDER PROBLEMS N OTHER # 1 N POLIO N LUNG DISEASE/DISORDER N RADIATION / CHEMOTHERAPY N COPD N Other # 2 N BLOOD DISEASES N SURGERY N EAR OR HEARING PROBLEMS N MUMPS N BOWEL PROBLEMS Y DEPRESSION (INCLUDING POST ) Y STROKE/TIA N ULCERS N BENIGN PROSTATIC [...] N CHRONIC PAIN SYNDROME N HYPOTHYROIDISM N CONSTIPATION N CAROTID BLOCKAGE N BACK / NECK PROBLEMS N HAVE YOU BEEN HOSPITALIZED OR SEEN IN THE MEDICAL CENTER IN THE PAST YEAR ? N ATHEROSCLEROSIS [...] toxoid, unspecified formulation 8 completed Not Available [facility] 11/22/2022 00:56:58 Tdap 8 completed Not Available [facility] 11/22/2022 00:56:59 Past Encounters Encounter ID Performer Location Encounter Start Date Encounter Closed Date Diagnosis/Indication Diagnosis SNOMED-CT Code Diagnosis ICD10 Code Diagnosis Note [id number] [facility] Internal Med [place] [address] [address], [address] [place] [address] 11/22/2020 00:00:00 11/29/2020 10:03:22 [id number] _ATHENA_M IGRATION_ DEFAULT_1 _1 , 02/16/2021 00:00:00 02/16/2021 11:10:58 [id number] DEYVI Kelley [facility] [place] [address] [address], [address] [place] [address] 12/07/2022 14:18:45 12/07/2022 15:09:39 Adult health examination 385098822 Z00.00 well exam completed. fasting labs ordered Cholesterol screening 27 1479568 Z13.220 Diabetes m ellitus screening 511287029 Z13.1 Screening for malignant neoplasm of colon 095964301 Z12.11 pt opts for cologuard screening method Screening for disorder 615400186 Z13.9 Body mass index 30+ - obesity 289797771 Z68.34 Screening mammography 24 851430 Z12.31 mammogram due Health Concerns Section Related Observation LastModified by Organization Detai ls LastModified Time None Recorded Concern Status LastModified by Organization Details LastModified Time None Recorded Advance Directives Directive N: Payers Encounter Date Sequence Insurance Name Policy Number Policy Rice Covered Member ID Rice Member ID Guarantor Name 12/07/2022 1 [facility] [id number] Dharmesh Hollingsworth [id number] Jennifer Hollingsworth Notes Date Note Type Note Provider Name and Address Organization Details Recorded Time 11/22/2020 text/html Generic HPI TemplateReported bypatient.Notes:Pt presents today for yearly wellness exam. No concerns or complaints reported. Not Available [facility] 11/29/2020 10:03:22 12/07/2022 text/html Generic HPI TemplateReported bypatient.Notes:Pt is here for her wellness. No chronic prob/meds. No complaints today. Wellness DEYVI Kelley [address] [place] [address], [place], [address], [facility] 12/16/2022 00:21:39 OBGyn Episode No OBEpisode recorded.
--- OUTSIDE RECORDS SUMMARY | 2025-01-09 07:59 | XMS_ITS | Continuity of Care Document ---
Author Organization [facility] Address [address] [facility] [address] [place] [address] Phone Care Team Providers Care Athletic Trainer Name Role Phone Jaylan Bhandari II, MD [...] detailed [facility], [address] [facility] [address] [place] [address], [address], [place] tel:[phone] [facility] WR right knee pain (chief complaint) Pain in limbBilateral anterior knee painChondromal acia, patella 3 Thony Tian. [address], [place], [place], [id number] , [place]. tel: [phone] Referring Provider: Socorro Amaya, [address] [place] [address] [address], [place], [address]. tel:[phone] Family History Family Member Type Diagnosis Age At Onset Father Problem (finding) stroke Father Problem (finding) Systemic lupus erythema tosus Payers Payer name Insurance type Covered alliance party ID Kat tejada(s) [facility] Plans [facility] CI [id number] 1 Social History Type Description Quantity Date [...]
== END 2025-01-09 07:53 | disposition home or self-care (01) ==
LOC: ANHIMG 07:56
PROVIDERS: PCP Physician Assistant; Visit Provider Obstetrics & Gynecology
DX: Z12.31 Encounter for screening mammogram for malignant neoplasm of breast (principal); N64.89 Other specified disorders of breast
CPT/HCPCS: 77063; 77067

== ENCOUNTER 2025-01-27 11:23 | Outpatient (CLI) | payer BC, SELFPAY ==
--- NOTE | ~2025-01-27 | MMUS_ITS ---
EXAMINATION: MM diagnostic maria e LT w nazario, US breast LT limited HISTORY: Follow-up left breast asymmetry. TECHNIQUE: Additional 3-D tomosynthesis images of the left breast were performed and synthetic 2-D im ages were generated. CAD analysis was submitted and interpreted. High resolution Limited left breast ultrasound was performed. COMPARISON: Comparison to multiple prior studies sequentially, with oldest reviewed study dated 05/17. BREAST PARENCHYMAL COMPOSITION: Not dense: There are scattered areas of fibroglandular density. FINDINGS: MAMMOGRAPHIC FINDINGS: There is persistent asymmetry in the upper outer quadrant of the left breast, although no discrete ma ss identified. There are no suspicious calcifications or architectural distortion. ULTRASOUND: Limited left breast ultrasound: There are multiple cysts of the left breast, largest at 12:00, 1 cm f rom the nipple measuring 1 cm maximum dimension. There are mildly prominent ducts. No suspicious mass es to suggest malignancy. IMPRESSION: 1. No evidence for malignancy in the left breast. Benign findings. 2. Routine yearly screening mammogram and regular clinical breast examination are recommended. BI-RADS Category 2: Benign finding(s). Reviewed, dictated and finalized at location A. IMPRESSION: 1. No evidence for malignancy in the left breast. Benign findings. 2. Routine yearly screening mammogram and regular clinical breast examination a re recommended. BI-RADS Category 2: Benign finding(s).
--- OUTSIDE RECORDS SUMMARY | 2025-01-27 12:14 | XMS_ITS | Continuity of Care Document ---
Author Organization [facility] Address [address] [facility] [address] [place] [address] Phone Care Team Providers Care Community Outreach Director Name Role Phone Jaylan Bhandari II, MD [...] detailed [facility], [address] [facility] [address] [place] [address], [address], [place] tel:[phone] [facility] WR right knee pain (chief complaint) Pain in limbBilateral anterior knee painChondromal acia, patella 3 Thony Tian. [address], [place], [place], [id number] , [place]. tel: [phone] Referring Provider: Socorro Amaya, [address] [place] [address] [address], [place], [address]. tel:[phone] Family History Family Member Type Diagnosis Age At Onset Father Problem (finding) stroke Father Problem (finding) Systemic lupus erythema tosus Payers Payer name Insurance type Covered republican ID Kat tejada(s) [facility] Plans [facility] CI [id number] 1 Social History Type Description Quantity Date [...]
--- OUTSIDE RECORDS SUMMARY | 2025-01-27 12:14 | XMS_ITS | Data Portability ---
Author Organization [facility] [place] Address [address] [place] [address] Care Team Providers Care Computer Specialist Name Role Phone SUSANJOHANAANTOINETTEIE Primary Care Provider CHRISTIANO Manning Cut Off Tender Glass Assessment Encounter Date Assessment Date Assessment LastModified by Organization Details LastModified Time 01/05/2025 01/05/2025 Cologuard December 28, 2022 is negative repeat in 2025 Mammogram scheduled for January 09 Labs are due Eye exam and dental due [email or web address] Not available 01/25/2025 11:49:50 Plan of Treatment Reminders Order Date Submit Date Provider Last Modified By Organization Details Last Modified Time Details Appointments None recorde d. Lab TSH + free T4, serum 2024 025 [facility], [address], [place], [address], 11:22:17 lipid panel, serum 2024 025 [facility], [address], [place], [address], 12:53:23 CBC w/ auto diff 2024 025 [facility], [address], [place], [address], 12:54:31 CMP, serum or plasma 2024 025 [facility] [employer] [facility], [address], [place], [address], 5 12:54:05 HbA1c (hemogl obin A1c), blood 2024 025 [facility], [address], [place], [address], 5 12:54:22 TSH + free T4, serum 2023 024 [place] [facility], [address], [place], [address], 4 09:29:31 lipid panel, serum 2023 024 [place] [facility], [address], [place], [address], 4 09:29:30 CBC w/ auto diff 2023 024 [email or web address], [address], [place], [address], 4 16:51:02 CMP, serum or plasma 2023 024 [email or web address], [address], [place], [address], 4 16:51:03 HbA1c (hemogl obin A1c), blood 2023 024 [email or web address] [facility], [address], [place], [address], 4 16:51:02 Referral None recorde d. Procedures None recorde d. Surgeries None recorde d. Imaging None recorde d. Medication Orders cephale tonny 500 mg capsule 2024 025 [id number], [address], [place], [place], [id number], 17:28:04 Patient TargetsNo targets recorded. Patient Instructions Encounter Date Encounter Id Patient Instructions Last Modified By Organization Details Last Modified Time 12/01/2024 [id number] A healthy lifestyle: care instructions [place] [id number] Not available 12/02/2024 12:06:49 Reason for Referral None Reported. Results Created Date Observation Date Name Description Value Unit Range Abnormal Flag Note LastModifiedBy Organization Detail LastModifiedTime 11/19/1911/18/2024 XR, finge r(s) No observ ation record ed. [email or web address] [address], [address], 11/19/2024 14:20:43 01/10/20 25 01/09/2025 MAMMO , scree vera, digit al, bilat eral No observ ation record ed. [email or web address] [address] [place] [address], [address], 01/15/2025 14:19:05 Result Notes None recorded. Problems Name Problem SNOMED Code Status Onset Date Resolution Date Notes Provider Name and Address Organization Details Recorded Time Body mass index 25-29 - overweight 898799134 Active 025 Randall Duque MA null, [place] - [facility] 11:35:38 Overweight 399925162 Active 025 DEYVI Kelley Attn: Accountin g,[address] [facility], [place], [address], [facility] - [facility] 20:40:21 Problem Notes None recorded. Procedures Surgical History Date Name Laterality Status Provider Name and Address Organization Details Recorded Time Suture/Staple removal completed DEYVI Kelley Attn: Accounting, [address] [place], [address], [place] [facility] 12/21/2024 20:39:20 ovarian ablation completed Thao Robles [place] - [facility] 12/03/2023 17:23:37 Imaging Results Imaging Date Name Status LastModified by Organiz ation Details LastModified Time 11/18/2024 [email or web address] [address] [facility] [address], [place], [address], 11/19/2024 14:20:43 01/09/2025 MAMMO, screening, digital, bilateral completed [email or web address] [facility] [address], [place], [address], 01/15/2025 14:19:05 Procedure Notes None recorded. Medical Equipment None [...] tablet by oral route for 5 days. 01/14 completed Not Available Not Available Not Available terbinafine HCl 250 mg tablet TAKE 1 TABLET BY MOUTH EVERY DAY active Not Available Not Available No t [...] Address Organization Details Last Updated DateTime 4 57958.2 5 g 33.8 kg/m2 165.1 cm 98 % 98 % 56 /min 128 mm[Hg] 82 mm[Hg] Thao Robles MA [place] - [facility] 4 17:22:25 Date Recorded Body height Body mass index (BMI) Body weight Respiratory rate Oxygen saturation Oxygen saturation in Arterial blood by Pulse oximetry Heart rate Systolic blood pressure Diastolic blood pressure Provider Name and Address Organization Details Last Updated DateTime 165.1 cm 27.8 kg/m2 29709 g 18 /min 97 % 97 % 75 /min 126 mm[Hg] 80 mm[Hg] Randall Duque MA [facility] 11:40:30 Date Recorded Body height Body mass index (BMI) Body weight Respiratory rate Oxygen saturation Oxygen saturation in Arterial blood by Pulse oximetry Heart rate Systolic blood pressure Diastolic blood pressure Provider Name and Address Organization Details Last Updated DateTime 165.1 cm 27.1 kg/m2 87100.5 6 g 18 /min 99 % 99 % 72 /min 126 mm[Hg] 82 mm[Hg] Randall Duque MA [facility] 17:29:41 Date Recorded Systolic blood pressure Diastolic blood pressure Provider Name and Address Organization Details Last Updated DateTime 01/05/2025 130 mm[Hg] 70 mm[Hg] DEYVI Kelley Attn: Accounting,[address] [place], [address], [facility] 01/05/2025 17:47:44 Social History Question Answer Notes LastModified by Organizat ion Details LastModified Time Tobacco Smoking Status Never Smoker Thao Robles MA null, [facility] 12/03/2023 17:23:28 Do You Have An Advance [...] Not availab le 12/03/2023 17:23:03 Father Malignant neoplasm of lung [email or web address] Not available 2023 17:23:10 [...] e and Address Organization Details Recorded Time Tdap 11/18/2024 completed Randall Duque MA [facility], [place] [facility] 12/01/2024 11:37:01 Past Encounters Encounter ID Performer Location Encounter Start Date Encounter Closed Date Diagnosis/Indication Diagnosis SNOMED-CT Code Diagnosis ICD10 Code Diagnosis Note [id number] Ian Alejandro MD [facility] [address] [place] [address] 12/03/2023 16:56:49 12/03/2023 17:57:31 Adult health examination 857491672 Z00.00 annual wellness completed. fasting labs ordered for annual evaluation . Cholesterol screening 27 6520587 Z13.220 Diabetes m ellitus screening 163721337 Z13.1 Thyroid di sorder screening 524955796 Z13.29 [id number] Ian Alejandro MD [facility] [address] [place] [address] 12/01/2024 11:13:46 12/01/2024 12:21:08 Body mass index 25-29 - overweight 806807276 Z68.27 Overweight 573391960 E66 .3 Laceration of finger of left hand 5351967636 9073463 S61.211D Sutures removed on the left index [...] started Cellulitis of finger of left hand 4064630991 2556140 L03.012 Start Keflex 500 mg every 6 hours for 10 days [id number] Ian Alejandro MD [facility] [employer] [address] [place] [address] 01/05/2025 17:17:12 01/05/2025 17:50:07 Adult health examination 193310175 Z00.00 annual wellness completed. fasting labs ordered for annual evaluation . Cholesterol screening 27 4601369 Z13.220 Diabetes m ellitus screening 886798665 Z13.1 Thyroid di sorder screening 124137240 Z13.29 Health Concerns Section Related Observation LastModified by Organization Detai ls LastModified Time None Recorded Concern Status LastModified by Organization Details LastModified Time None Recorded Advance Directives Directive N: Payers Encounter Date Sequence Insurance Name Policy Number Policy Rice Covered Member ID Rice Member ID Guarantor Name 12/03/2023 1 [place] [id number] Jennifer Hollingsworth [id number] Jennifer Hollingsworth 12/01/2024 1 [place] [id number] Jennifer Hollingsworth [id number] Jennifer Hollingsworth 01/05/2025 1 [place] [id number] Jennifer Hollingsworth [id number] Jennifer Hollingsworth Notes Date Note Type Note Provider Name and Address Organization Details Recorded Time 12/03/2023 text/html Generic HPI TemplateReported bypatient.Notes:pt is here to re-establish with PCP at new office. Here for wellness evaluation. DEYVI Kelley Attn: Accounting,[address] [place], [address], [facility] 12/23/2023 13:01:24 12/01/2024 text/html Patient is here for follow-up of laceration of left hand finger and have all of the sutures removed. She is not currently on any antibiotic but is in quite a bit of pain since the accident. 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 She is not currently having any fever but again she has kept the area bandaged and does have pain. DEYVI Kelley Attn: Accounting,[address] [place], [address], [facility] 12/21/2024 20:40:45 01/05/2025 text/html Generic HPI TemplateReported bypatient.Notes:Here for wellness evaluation. She is interested in labs. No complaints. Her finger laceration has healed very well after stitches were removed. DEYVI Kelley Attn: Accounting,[address] [place], [address], [facility] 01/25/2025 11:50:04 OBGyn Episode No OBEpisode recorded.
--- OUTSIDE RECORDS SUMMARY | 2025-01-27 12:14 | XMS_ITS | Data Portability ---
Author Organization [facility] [employer]ings[employer]io, Main Office Address [address] [place] [address] Assessment No assessment recorded. Plan of Treatment Reminders Order Date Submit Date Provider Last Modified By Organization Details Last Modified Time Details Appointments None recorded. Lab CBC w/ auto diff 2022 023 Panève [facility], [address], [address], [place], [address], 3 07:27:20 CMP, serum or plasma 2022 023 Panève [facility], [address], [address], [place], [address], 3 07:27:18 noninvasive colorectal cancer DNA + occult blood screening, QL, stool 2022 023 [facility] (Cologuard Orders Only), [address], [address], [place], [address], 3 03:33:16 lipid panel, serum 2022 023 Panève [facility], [address], [address], [place], [address], 3 07:27:17 HbA1c (hemoglobin A1c), blood 2022 023 Panève [facility], [address], [address], [place], [address], 3 07:27:19 TSH + free T4, serum 2022 023 [facility], [address], [place], [address], 07:27:17 Referral None recorded. Procedures None recorded. Surgeries None recorded. Imaging MAMMO, screening, digital, bilateral 2022 023 [facility] (Mammography) , [address], [place], [address], 17:05:11 Medication Orders None recorded. Patient TargetsNo [...] Third trime ster 0.43- 2.91 Not Available [email or web address] [address], [address], 12/09/2022 07:27:16 12/09/1912/09/2022 TSH+F REE T4 T4, free 1.0 NG/dL 0.8-1. 8 normal Not Available [facility] [address] [place], [address], 12/09/2022 07:27:16 12/09/1912/09/2022 LIPID PANEL WITH RATIO S cholesterol, total 167 mg/dL <200 normal Not Available [facility] [address] [place], [address], 12/09/2022 07:27:17 12/09/1912/09/2022 LIPID PANEL WITH RATIO S HDL cholesterol 75 mg/dL > or = 50 normal Not Available [facility] [id number] [place], [place] [address], [address], 12/09/2022 07:27:17 12/09/19 23 12/09/2022 LIPID PANEL WITH RATIO S triglyceride s 46 mg/dL <150 normal Not Available [address], [address], 12/09/2022 07:27:17 12/09/19 23 12/09/2022 LIPID PANEL [...] 2061- 2068 (http ://ed ucati on.Qu estDi Mindscore. com/f aq/FA Q164) Not Available [address], [address], 12/09/2022 07:27:17 12/09/19 23 12/09/2022 LIPID PANEL WITH RATIO S chol/HDLC ratio 2.2 (calc ) <5.0 normal Not Available [address], [address], 12/09/2022 07:27:17 12/09/19 23 12/09/2022 LIPID PANEL WITH RATIO S LDL/HDL ratio 1.1 (calc ) Below avera ge Risk: <2.34 [place] ge Risk: 2.35- 4.12 Moder ate Risk: 4.13- 5.56 High Risk: >5.57 Not Available [address], [address], 12/09/2022 07:27:17 12/09/19 23 12/09/2022 LIPID PANEL WITH RATIO S non HDL cholesterol 92 mg/dL _(woody c) <130 normal For patie nts with diabe clary plus 1 major ASCVD risk facto r, treat ing to a non-H DL-C goal of <100 mg/dL (LDL- C of <70 mg/dL ) is tammyi teagan kimball optio n. Not Available [address] [place], [address], 12/09/2022 07:27:17 12/09/19 23 12/09/2022 COMPR EHENS PHYLLIS METAB OLIC PANEL glucose 95 mg/dL 65-99 normal Fasti ng refer ence inter angela Not Available [address], [address], 12/09/2022 07:27:18 12/09/19 23 12/09/2022 COMPR EHENS PHYLLIS METAB OLIC PANEL urea nitrogen (BUN) 16 mg/dL 7-25 normal Not Available [address], [address], 12/09/2022 07:27:18 12/09/19 23 12/09/2022 COMPR EHENS PHYLLIS METAB OLIC PANEL creatinine 0.77 mg/dL 0.50-0 .99 normal Not Available [address], [address], 12/09/2022 07:27:18 12/09/19 23 12/09/2022 COMPR EHENS [...] kdoqi /gfr% 5Fcal culat or Not Available [address] [place], [address], 12/09/2022 07:27:18 12/09/19 23 12/09/2022 COMPR EHENS PHYLLIS METAB OLIC PANEL BUN/creatini ne ratio NOT APPLIC ABLE (calc ) 6-22 Not Available [address], [address], 12/09/2022 07:27:18 12/09/19 23 12/09/2022 COMPR EHENS PHYLLIS METAB OLIC PANEL sodium 138 mmol/ L 135-14 6 normal Not Available [address], [address], 12/09/2022 07:27:18 12/09/19 23 12/09/2022 COMPR EHENS PHYLLIS METAB OLIC PANEL potassium 4.2 mmol/ L 3.5-5. 3 normal Not Available [address], [address], 12/09/2022 07:27:18 12/09/19 23 12/09/2022 COMPR EHENS PHYLLIS METAB OLIC PANEL chloride 103 mmol/ L 98-110 normal Not Available [address], [address], 12/09/2022 07:27:18 12/09/19 23 12/09/2022 COMPR EHENS PHYLLIS METAB OLIC PANEL carbon dioxide 28 mmol/ L 20-32 normal Not Available [address], [address], 12/09/2022 07:27:18 12/09/19 23 12/09/2022 COMPR EHENS PHYLLIS METAB OLIC PANEL calcium 9.2 mg/dL 8.6-10 .2 normal Not Available [address], [address], 12/09/2022 07:27:18 12/09/19 23 12/09/2022 COMPR EHENS PHYLLIS METAB OLIC PANEL protein, total 6.9 g/dL 6.1-8. 1 normal Not Available [address], [address], 12/09/2022 07:27:18 12/09/19 23 12/09/2022 COMPR EHENS PHYLLIS METAB OLIC PANEL albumin 4.4 g/dL 3.6-5. 1 normal Not Available [address], [address], 12/09/2022 07:27:18 12/09/19 23 12/09/2022 COMPR EHENS PHYLLIS METAB OLIC PANEL globulin 2.5 g/dL_ (calc ) 1.9-3. 7 normal Not Available [address], [address], 12/09/2022 07:27:18 12/09/19 23 12/09/2022 COMPR EHENS PHYLLIS METAB OLIC PANEL albumin/glob ulin ratio 1.8 (calc ) 1.0-2. 5 normal Not Available [address], [address], 12/09/2022 07:27:18 12/09/19 23 12/09/2022 COMPR EHENS PHYLLIS METAB OLIC PANEL bilirubin, total 0.5 mg/dL 0.2-1. 2 normal Not Available [address], [address], 12/09/2022 07:27:18 12/09/19 23 12/09/2022 COMPR EHENS PHYLLIS METAB OLIC PANEL alkaline phosphatase 64 U/L 31-125 normal Not Available [address], [address], 12/09/2022 07:27:18 12/09/19 23 12/09/2022 COMPR EHENS PHYLLIS METAB OLIC PANEL AST 15 U/L 10-35 normal Not Available [address] [place], [address], 12/09/2022 07:27:18 12/09/19 23 12/09/2022 COMPR EHENS PHYLLIS METAB OLIC PANEL ALT 14 U/L 6-29 normal Not Available [facility] [address] [place], [address], 12/09/2022 07:27:18 12/09/19 23 12/09/2022 HEMOG LOBIN [...] Diabe clary(A DA). Not Available [facility] [address] [place], [address], 12/09/2022 07:27:19 12/09/19 23 12/09/2022 CBC (INCL UDES DIFF/ PLT) white blood cell count 6.9 thous and/u L 3.8-10 .8 normal Not Available [facility] [address] [place], [address], 12/09/2022 07:27:20 12/09/19 23 12/09/2022 CBC (INCL UDES DIFF/ PLT) red blood cell count 4.51 yvonne on/uL 3.80-5 .10 normal Not Available [address], [address], 12/09/2022 07:27:20 12/09/19 23 12/09/2022 CBC (INCL UDES DIFF/ PLT) hemoglobin 13.5 g/dL 11.7-1 5.5 normal Not Available [address], [address], 12/09/2022 07:27:20 12/09/19 23 12/09/2022 CBC (INCL UDES DIFF/ PLT) hematocrit 40.4 % 35.0-4 5.0 normal Not Available [address], [address], 12/09/2022 07:27:20 12/09/19 23 12/09/2022 CBC (INCL UDES DIFF/ PLT) MCV 89.6 fL 80.0-1 00.0 normal Not Available [address], [address], 12/09/2022 07:27:20 12/09/19 23 12/09/2022 CBC (INCL UDES DIFF/ PLT) MCH 29.9 pg 27.0-3 3.0 normal Not Available [address], [address], 12/09/2022 07:27:20 12/09/19 23 12/09/2022 CBC (INCL UDES DIFF/ PLT) MCHC 33.4 g/dL 32.0-3 6.0 normal Not Available [address], [address], 12/09/2022 07:27:20 12/09/19 23 12/09/2022 CBC (INCL UDES DIFF/ PLT) RDW 11.9 % 11.0-1 5.0 normal Not Available [facility] [address], [address], 12/09/2022 07:27:20 12/09/19 23 12/09/2022 CBC (INCL UDES DIFF/ PLT) platelet count 353 thous and/u L 140-40 0 normal Not Available [address], [address], 12/09/2022 07:27:20 12/09/19 23 12/09/2022 CBC (INCL UDES DIFF/ PLT) MPV 9.9 fL 7.5-12 .5 normal Not Available [address], [address], 12/09/2022 07:27:20 12/09/19 23 12/09/2022 CBC (INCL UDES DIFF/ PLT) absolute neutrophils 4050 cells /uL 1500-7 800 normal Not Available [address], [address], 12/09/2022 07:27:20 12/09/19 23 12/09/2022 CBC (INCL UDES DIFF/ PLT) absolute lymphocytes 2263 cells /uL 850-39 00 normal Not Available [address], [address], 12/09/2022 07:27:20 12/09/19 23 12/09/2022 CBC (INCL UDES DIFF/ PLT) absolute monocytes 442 cells /uL 200-95 0 normal Not Available [address], [address], 12/09/2022 07:27:20 12/09/19 23 12/09/2022 CBC (INCL UDES DIFF/ PLT) absolute eosinophils 83 cells /uL 15-500 normal Not Available [address], [address], 12/09/2022 07:27:20 12/09/19 23 12/09/2022 CBC (INCL UDES DIFF/ PLT) absolute basophils 62 cells /uL 0-200 normal Not Available [address], [address], 12/09/2022 07:27:20 12/09/19 23 12/09/2022 CBC (INCL UDES DIFF/ PLT) neutrophils 58.7 % normal Not Available [address], [address], 12/09/2022 07:27:20 12/09/19 23 12/09/2022 CBC (INCL UDES DIFF/ PLT) lymphocytes 32.8 % normal Not Available [address], [address], 12/09/2022 07:27:20 12/09/19 23 12/09/2022 CBC (INCL UDES DIFF/ PLT) monocytes 6.4 % normal Not Available [address], [address], 12/09/2022 07:27:20 12/09/19 23 12/09/2022 CBC (INCL UDES DIFF/ PLT) eosinophils 1.2 % normal Not Available [address], [address], 12/09/2022 07:27:20 12/09/19 23 12/09/2022 CBC (INCL UDES DIFF/ PLT) basophils 0.9 % normal Not Available [address], [address], 12/09/2022 07:27:20 12/29/19 23 12/28/2022 COLOG UARD cologuard result reportable NEGATI VE negati ve NEGAT PHYLLIS TEST RESUL T. A negat phyllis Colog uard resul t indic ates a low likel ihood that a color ectal cance r (CRC) or advan eder adeno ma (gunjan omato us polyp s with more advan eder pre-m align ant featu res) is prese nt. [facility] e that a perso n with a [...] of 10,00 0 [facility] [facility] risk for color ectal cance r [...] asymp tomat ic indiv idual s at [place] [facility] risk for color ectal cance r. [...] 112:1 016-1 030. TEST DESCR IPTIO N: [place] site algor ithmi c ashley sis of [...] years or older , who are at [facility] for color ectal cance r (CRC) . Colog uard has been appro pearl for use by the [place] FDA. The perfo rmanc e of Colog uard was estab lishe d in a cross secti onal study of [facility] adult s aged 50-84 . Colog uard [...] [31%] ; or no color ectal neopl ttayana [45%] . These estim ates are deriv ed from a prosp ectiv e cross -sect ional scree [facility] study of 10,00 0 indiv idual s at [facility] risk for color ectal cance r who [...] at www.c ologu marco.c om. Not Available [facility] (Cologuard Orders Only) [address], [place], [address], 01/05/2023 03:33:16 01/11/20 21 01/10/2021 US, deangelo cruz r No observ ation record ed. MIGRATION. [address] [place] [address], [address], 11/22/2022 00:57:30 01/25/20 21 01/24/2021 CT, abdom en + pelvi s, w/ contr ast No observ ation record ed. MIGRATION. [address] [place] [address] (Imaging) [address] [place] [address], [address], 11/22/2022 00:57:30 06/08/20 21 06/08/2021 MAMMO , scree vera, digit al, bilat eral No observ ation record ed. MIGRATION. [address] [place] [address] (Mammography) [address], [place], [address], 11/22/2022 00:57:30 04/17/20 23 02/08/2023 MAMMO , scree vera, digit al, bilat eral No observ ation record ed. [email or web address] [address], [address], 04/18/2023 14:44:05 Result Notes None recorded. Problems Name Problem SNOMED Code Status Onset Date Resolution Date Notes Provider Name and Address Organization Details Recorded Time Overweight 997981663 Active Not Available [facility] 3 00:50:48 Diarrhea 99111867 Active Not Available [facility] 3 00:50:48 Problem Notes None recorded. Procedures Surgical History Date Name Laterality Status Provider Name and Address Organization Details Recorded Time ligation of bilateral fallopian tubes completed Not Available [facility] 11/22/2022 00:45:34 Ablation completed Not Available [facility] 00:45:34 Imaging Results Imaging Date Name Status LastModified by Organiz ation Details LastModified Time 01/10/2021 US, gallbladder completed [id number], [address], 11/22/2022 00:57:30 01/24/2021 CT, abdomen + pelvis, w/ contrast completed [id number] [facility] (Imaging) [address] [place] [address], [place], [address], 11/22/2022 00:57:30 06/08/2021 MAMMO, screening, digital, bilateral completed [id number] [facility] (Mammography) [address], [place], [address], 11/22/2022 00:57:30 02/08/2023 MAMMO, screening, digital, bilateral completed [address], [address], 04/18/2023 14:44:05 Procedure Notes None recorded. Medical [...] % 68 /min 16 /min 98.4 [degF] 19853.4 4 g 112 mm[Hg] 68 mm[Hg] Not Available [facility] 3 00:48:40 Date Recorded Body mass index (BMI) Body height Oxygen saturation Oxygen saturation in Arterial blood by Pulse oximetry Pain severity - 0-10 verbal numeric rating [Score] - Reported Heart rate Body temperature Body weight Provider Name and Address Organization Details Last Updated DateTime 1 35.7 kg/m2 162.56 cm 98 % 98 % 0 75 /min 96.9 [degF] 73302.2 1 g Not Available [facility] 3 00:48:42 Date Recorded Body height Body temperature Body mass index (BMI) Body weight Respiratory rate Oxygen saturation Oxygen saturation in Arterial blood by Pulse oximetry Heart rate Systolic blood pressure Diastolic blood pressure Provider Name and Address Organization Details Last Updated DateTime 3 162.56 cm 98.3 [degF] 34.7 kg/m2 17866.6 6 g 16 /min 97 % 97 % 68 /min 122 mm[Hg] 80 mm[Hg] REI Lee [facility] 3 14:39:21 Social History Question Answer Notes LastModified by Organizat ion Details LastModified Time Tobacco Smoking Status Never Smoker CINDY Márquez, [facility] 12/07/2022 14:22:37 Do You Have An Advance Directive? No [id number] Information not available 11/22/2022 What Is Your Level Of Alcohol Consumption? None [id number] Information not available 11/22/2022 What Is Your Level Of Caffeine Consumption? Moderate [id number] Information not available 11/22/2022 How Much Tobacco Do You Chew? None [id number] Information not available 11/22/2022 In The 14 [...] Type Of Diet Are You Following? REGULAR [id number] Information not available 11/22/2022 Which Illicit Or Recreational Drugs Have You Used? None Information not available 12/07/2022 Do You Or Have You Ever Used E-cigarettes Or Vape? Never Used Electronic Cigarettes Information not available 12/07/2022 What Is Your Occupation? [employer] Information not available 12/07/2022 Have There Been Any Changes To Your Family Or Social Situation? No Information no t available 12/07/2022 Are There Any Guns Present In Your Home? No Information not available 12/07/2022 Do You Use Insect Repellent Routinely? No Information not available 12/07/2022 Do You Have A Medical Power Of In Home Nanny? No Information not available 12/07/2022 What Was [...] Used Smokeless Tobacco? Never Used Smokeless Tobacco [id number] Information not available 11/22/2022 How Much Tobacco Do You Smoke? No [id number] Information not available 11/22/2022 Do You Use [...] Time What is your exercise level? Occasional [id number] Information not available 11/22/2022 Mental Status None recorded. Family History Relationship Description Onset Age of this Age Resolved Age Notes LastModified by Organization Details LastModified Time Mother Diabetes mellitus [id number] Not available 11/22/2022 00:45:38 Mother Hypertensive disorder [id number] Not available 11/22/2022 00:45:38 Brother Diabetes mellitus [id number] Not available 11/22/2022 00:45:38 Father Malignant neoplasm of lung Not available 2022 14:22:34 Medical [...] ARTERY DISEASE (CAD) N ADDICTION CONCERNS N ENDOMETRIOSIS N Impotence N USE OF BLOOD THINNERS N SKIN [...] APNEA N CHICKENPOX N INFECTIOUS DISEASE N HEART ARRHYTHMIA N PROSTATE N INSOMNIA N HIGH CHOLESTEROL / HYPERLIPIDEMIA N HYPERTHYROIDISM N EYE PROBLEMS N NEUROLOGICAL PROBLEMS N EDEMA N CHRONIC PAIN SYNDROME N HYPOTHYROIDISM N CAROTID BLOCKAGE N CONSTIPATION N BACK / NECK PROBLEMS N HAVE YOU BEEN HOSPITALIZED OR SEEN IN [facility] IN THE PAST YEAR ? [...] N ALZHEIMER'S DISEASE N Brain Problems N HERPES N DEMENTIA N HEADACHES/MIGRAINES N SEIZURES/EPILEPSY N VASCULAR DISEASE N PACEMAKER N Blood Disorder N DIZZINESS Y HEART DISEASE/HEART PROBLEMS N KIDNEY DISEASE N MULTIPLE SCLEROSIS N CARDIAC ARRHYTHMIA N CANCER: SPECIFY N ANESTHESIA COMPLICATIONS N ATRIAL FIBRILLATION N [...] unspecified formulation 8 completed Not Available [facility] 11/22/2022 00:56:58 Tdap 8 completed Not Available [facility] 11/22/2022 00:56:59 Past Encounters Encounter ID Performer Location Encounter Start Date Encounter Closed Date Diagnosis/Indication Diagnosis SNOMED-CT Code Diagnosis ICD10 Code Diagnosis Note [id number] DEYVI Kelley [facility] [place] [address] [address], [address] [place] [address] 11/22/2020 00:00:00 11/29/2020 10:03:22 [id number] _ATHN_MIGR ATION_1 _ATHENA_M IGRATION_ DEFAULT_1 _1 , 02/16/2021 00:00:00 02/16/2021 11:10:58 [id number] DEYVI Kelley [facility] [place] [address] [facility] [address] [place] [address] 12/07/2022 14:18:45 12/07/2022 15:09:39 Adult health examination 958247836 Z00.00 well exam completed. fasting labs ordered Cholesterol screening 27 5679151 Z13.220 Diabetes m ellitus screening 537016706 Z13.1 Screening for malignant neoplasm of colon 186783499 Z12.11 pt opts for cologuard screening method Screening for disorder 574802704 Z13.9 Body mass index 30+ - obesity 904846489 Z68.34 Screening mammography 24 919886 Z12.31 mammogram due Health Concerns Section Related Observation LastModified by Organization Detai ls LastModified Time None Recorded Concern Status LastModified by Organization Details LastModified Time None Recorded Advance Directives Directive N: Payers Encounter Date Sequence Insurance Name Policy Number Policy Rice Covered Member ID Rice Member ID Guarantor Name 12/07/2022 1 [facility]: ([id number] Dharmesh Hollingsworth [id number] Jennifer Hollingsworth Notes Date Note Type Note Provider Name and Address Organization Details Recorded Time 11/22/2020 text/html Generic HPI TemplateReported bypatient.Notes:Pt presents today for yearly wellness exam. No concerns or complaints reported. Not Available [facility] 11/29/2020 10:03:22 12/07/2022 text/html Generic HPI TemplateReported bypatient.Notes:Pt is here for her wellness. No chronic prob/meds. No complaints today. Wellness DEYVI Kelley [address] [place] [address], [place], [address], [employer] 12/16/2022 00:21:39 OBGyn Episode No OBEpisode recorded.
== END 2025-01-27 11:24 | disposition home or self-care (01) ==
PROVIDERS: PCP Physician Assistant; Visit Provider Obstetrics & Gynecology
DX: N64.89 Other specified disorders of breast (principal)
CPT/HCPCS: 76642; 77061; 77065; G0279